=== PATIENT | female | born 1955 | race Caucasian/White ===

== ENCOUNTER 2018-06-05 16:52 | Inpatient (IN) | payer BC, OTHER ==
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
[2018-06-05 18:29] LABS: Basophils % (A) 0 %; Eosinophils # (A) 0.1 k/uL (0-0.7); Eosinophils % (A) 1 %; HCT 43.5 % (34.0-46.0); Lymphocytes # (A) 0.8 k/uL (1.0-4.8); Lymphocytes % (A) 7 %; MCH 29.6 pg (25.0-35.0); MCHC 32.1 g/dL (31.0-37.0); MCV 92.2 fL (80.0-100.0); Mean Platelet Volume 6.9; Monocytes # (A) 0.5 k/uL (0-1.0); Monocytes % (A) 4 %; Neutrophils # (A) 10.8 k/uL (1.3-7.7); Neutrophils % (A) 88 %; Platelet Count 159 k/uL (150-450); RBC 4.72 m/uL (3.80-5.40); RDW 13.5 % (11.5-15.5); WBC 12.2 k/uL (3.8-10.6)
[2018-06-05 18:37] LABS: INR 1.2 (<1.2); Prothrombin Time 11.7 sec (9.0-12.0)
[2018-06-05 18:38] LABS: ALT 33 U/L (9-52); AST 21 U/L (14-36); Albumin 3.8 g/dL (3.5-5.0); Alkaline Phosphatase 85 U/L (38-126); Anion Gap 9 mmol/L; Blood Urea Nitrogen 19 mg/dL (7-17); Calcium 9.1 mg/dL (8.4-10.2); Carbon Dioxide 26 mmol/L (22-30); Chloride 104 mmol/L (98-107); Glucose 144 mg/dL (74-99); Potassium 4.8 mmol/L (3.5-5.1); Sodium 139 mmol/L (137-145); Total Bilirubin 0.6 mg/dL (0.2-1.3); Total Protein 7.4 g/dL (6.3-8.2)
--- NOTE | 2018-06-05 19:17 | XR ---
EXAMINATION TYPE: XR hand complete LT DATE OF EXAM: 06/05/2018 COMPARISON: NONE HISTORY: Hand pain TECHNIQUE: 3 views FINDINGS: There is soft tissue swelling around the hand. Metacarpals are intact. There is narrowing a nd spurring at the first carpometacarpal joint. There are no erosions. IMPRESSION: Soft tissue swelling. Osteoarthritis. No fracture.
--- NOTE | 2018-06-05 19:18 | XR ---
EXAMINATION TYPE: XR wrist complete LT DATE OF EXAM: 06/05/2018 COMPARISON: NONE HISTORY: Pain TECHNIQUE: 4 views FINDINGS: There is narrowing and spurring at the first carpometacarpal joint. I see no fracture. Ther e is vascular calcification. There are cystic changes in the distal scaphoid. IMPRESSION: Degenerative changes consistent with osteoarthritis. No fracture. Soft tissue swelling. No evidence of inflammatory arthritis.
[2018-06-05] MEDS ORDERED: ACETAMINOPHEN TAB 325 MG TAB PO STA (19:52)
[2018-06-05 20:35] LABS: Appearance,Urine Clear (Clear); Bacteria,Urine Rare /hpf; Bilirubin,Urine Negative (Negative); Blood,Urine Moderate (Negative); Color,Urine Yellow; Glucose,Urine (UA) Negative (Negative); Ketones,Urine Negative (Negative); Leukocyte Esterase,Urine Negative (Negative); Mucus,Urine Occasional /hpf; Nitrite,Urine Negative (Negative); Protein,Urine Negative (Negative); RBC,Urine 17 /hpf (0-5); Specific Gravity,Urine 1.019 (1.001-1.035); Urobilinogen,Urine <2.0 mg/dL (<2.0); WBC,Urine 1 /hpf (0-5)
--- NOTE | 2018-06-05 20:36 | XR ---
EXAMINATION TYPE: XR chest 2V DATE OF EXAM: 06/05/2018 COMPARISON: 12/06/2015 HISTORY: Fever TECHNIQUE: Frontal and lateral views of the chest are obtained. FINDINGS: Heart is enlarged. There is no heart failure. Costophrenic angles are clear. There is mild coarsening of interstitial markings. IMPRESSION: No heart failure. There is probably some pulmonary fibrosis. No change. Stable cardiomeg jane.
[2018-06-05] MEDS ORDERED: VANCOMYCIN IV PER PHARMACY 1 EACH MISC MISCELLANE PRN (21:01)
[2018-06-05] MEDS ORDERED: VANCOMYCIN 2,500 MG in SODIUM CHLORIDE 0.9% 500 ML 500 ML IVPB ONE (21:30)
[2018-06-05] MEDS ORDERED: ACETAMINOPHEN TAB 325 MG TAB PO PRN (21:46)
[2018-06-06] MEDS ORDERED: HYDROcodone/APAP 7.5-325MG 1 EACH TAB PO PRN (01:32)
[2018-06-06] MEDS: SODIUM CHLORIDE 0.9% 1,000 ML IV SCH ×2 (01:54→11:02)
[2018-06-06] MEDS: VANCOMYCIN 2,250 MG in SODIUM CHLORIDE 0.9% 500 ML 500 ML IVPB SCH ×2 (05:19→17:22)
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
[2018-06-06] MEDS ORDERED: cefTRIAXone 1,000 MG VIAL IVPB SCH (09:00)
[2018-06-06] MEDS: HYDROcodone/APAP 10-325MG 1 EACH TAB PO PRN ×3 (09:23→21:49)
[2018-06-06] MEDS: METOPROLOL TARTRATE 50 MG TAB PO SCH (09:23)
[2018-06-06] MEDS: PRENATAL VIT-IRON-FOLIC ACID 1 EACH CAP PO SCH (11:02)
[2018-06-06 12:04] LABS: Anion Gap 6 mmol/L; Blood Urea Nitrogen 17 mg/dL (7-17); Calcium 8.3 mg/dL (8.4-10.2); Carbon Dioxide 26 mmol/L (22-30); Chloride 107 mmol/L (98-107); Glucose 113 mg/dL (74-99); Potassium 4.1 mmol/L (3.5-5.1); Sodium 139 mmol/L (137-145)
--- NOTE | 2018-06-06 22:36 | CONS ---
CONSULTATION DATE OF SERVICE: 06/06/2018 REASON FOR CONSULTATION: Left hand cellulitis. HISTORY OF PRESENT ILLNESS: The patient is a 63-year-old female who presented to the [facility] ER with chief complaints of left hand pain. Her symptom of hand pain had been going on for about a day before she presented to hospital. The patient denies significant trauma to it. However, the patient says she may have leaned or bumped it against the side of her hospital bed. The pain is described to be throbbing, almost 7 to 8 out of 10, and worse with touching of her hand with overlying redness. There is currently no skin breakdown or any wounds. The patient did have some chills and she did have a fever of 101.4 when she presented to the hospital. The patient has been diagnosed with left hand cellulitis. She had x-rays of the left hand which show soft tissue swelling, osteoarthritis. No fracture. X-ray of the wrist shows degenerative changes consistent with osteoarthritis. No fracture. Soft tissue swelling. She has been started on Rocephin and vancomycin. Infectious Disease was consulted for further recommendation regarding antibiotic therapy. REVIEW OF SYSTEMS: CONSTITUTIONAL: Positive for weakness along with a fever. EYES: No complaint. ENT: No complaint. RESPIRATORY: No complaint. CARDIOVASCULAR: No complaint. GENITOURINARY: No complaint. GASTROINTESTINAL: No complaint. MUSCULOSKELETAL: As per HPI. INTEGUMENTARY: As per HPI. PSYCHOLOGICAL: No complaint. ENDOCRINE: No complaint. NEUROLOGICAL: No complaint. PAST MEDICAL HISTORY: Significant for: 1. Hypertension. 2. Osteoarthritis. 3. Lymphedema. PAST SURGICAL HISTORY: , hernia repair. SOCIAL HISTORY: Remote history of smoking. No drinking or any drug use. FAMILY HISTORY: No pertinent findings noticed. ALLERGIES: LATEX and NATURAL RUBBER. CURRENT MEDICATIONS: Medications currently include: 1. Vancomycin 250 q.12. 2. Lopressor. 3. Rocephin 1 gram daily. 4. [place]. 5. Tylenol. PHYSICAL EXAMINATION: Blood pressure is 155/73 with a pulse of 72, temperature 97.1. She is 95% on room air. General description is a middle-aged female up in the bed in no distress. No tachypnea or accessory muscle of respiration use. HEENT examination shows no pallor or scleral icterus. Oral mucosa membrane is moist. No pharyngeal erythema or thrush. NECK: Trachea is central. No thyromegaly. LUNGS: Unlabored breathing. Clear to auscultation anteriorly. No wheeze or crackle. HEART: S1, S2. Regular rate and rhythm. ABDOMEN: Soft. No tenderness. No guarding or rigidity. EXTREMITIES: No edema of the feet. EXAMINATION OF LEFT HAND: Dorsum is swollen, red, slightly warm to touch and tender. No fluctuation, induration or any drainage. Neurologically patient is awake, alert, oriented x3. Mood and affect normal. LABS: Hemoglobin is 14, white count 12.2 with a BUN of 17, creatinine 0.62. Urine has been mildly positive. Blood cultures were obtained; currently pending. X-ray report as mentioned above. DIAGNOSTIC IMPRESSION AND PLAN: Patient presented to hospital with left hand pain in a patient who did have a fever of 101 degrees Fahrenheit. The patient did have elevated white count with a diagnosis of left hand cellulitis with diffuse swelling and redness, more likely pointing toward a streptococcal cellulitis patient with no underlying MRSA infection with x- ray showing soft tissue swelling but no bony changes. PLAN: 1. We will discontinue the vancomycin and ceftriaxone. 2. Cefazolin 2 grams IV piggyback q.8 hours. 3. Ke wrap to the left hand area to keep some of the swelling down. 4. We will follow up on clinical condition to further adjust her medication if needed. Thank you for this consultation. We will follow the patient along with you. MMODL / IJN: [id number] /
[2018-06-07] MEDS: ceFAZolin IN SWFI 2 GM/20 ML SYRINGE IVP SCH ×4 (01:00→21:46)
[2018-06-07] MEDS: SODIUM CHLORIDE 0.9% 1,000 ML IV SCH ×2 (01:03→16:21)
[2018-06-07] MEDS: HYDROcodone/APAP 10-325MG 1 EACH TAB PO PRN ×3 (05:29→17:59)
--- NOTE | 2018-06-07 07:18 | P.PN ---
Subjective Progress Note Date: 06/07/18 Principal diagnosis: Left hand cellulitis This is a continue progress note on a 63-year-old white female who is morbidly obese and has an underlying history of immobility who has been admitted for significant left and cellulitis. Erythema is decreased but pain still exists. She is unable to make a fist today. However no fever or chills stated. No sniffing nausea, vomiting or diarrhea stated. Objective - Vital Signs Vital signs: Vital Signs Temp 98.8 F 06/06/18 23:00 Pulse 76 06/06/18 23:00 Resp 17 06/06/18 23:00 BP 144/77 06/06/18 23:00 Pulse Ox 93 L 06/06/18 23:00 Intake & Output 06/06/18 06/07/18 06/07/18 18:59 06:59 18:59 Intake Total 840 Output Total 900 Balance -60 Intake: Intake, IV Titration 600 Amount Sodium Chloride 0.9% 1, 600 000 ml @ 75 mls/hr IV . [id number] [facility] Rx#:[id number] Oral 240 Output: Urine 900 Other: Voiding Method Indwelling Catheter Indwelling Catheter - Constitutional General appearance: Present: morbidly obese, no acute distress - EENT Eyes: Absent: abnormal pupil - Neck Neck: Absent: lymphadenopathy - Respiratory Respiratory: bilateral: CTA - Cardiovascular Rhythm: regular Heart sounds: normal: S1, S2 Abnormal Heart Sounds: Absent: S3 Gallop - Gastrointestinal General gastrointestinal: Present: soft. Absent: tenderness - Integumentary Integumentary Comment(s): Improving cellulitis but significant edema still noted of the left hand. Integumentary: Present: cellulitis - Neurologic Neurologic: Present: CNII-XII intact - Labs CBC & Chem 7: 06/05/18 18:10 06/06/18 11:28 Labs: Abnormal Lab Results - Last 24 Hours (Table) 06/06/18 Range/Units 11:28 Glucose 113 H (74-99) mg/dL Calcium 8.3 L (8.4-10.2) mg/dL Microbiology - Last 24 Hours (Table) 06/05/18 18:10 Blood Culture - Preliminary Blood No Growth after 24 hours Assessment and Plan (1) Cellulitis of left hand Current Visit: Yes Status: Acute Code(s): L03.114 - CELLULITIS OF LEFT UPPER LIMB SNOMED Code(s): 62284419 (2) Fever Current Visit: Yes Status: Acute Code(s): R50.9 - FEVER, UNSPECIFIED SNOMED Code(s): 468023039 Plan: Continue current regimen of treatment. The patient has been discontinued from vancomycin. The patient has not continued on salt with improvement. Continue current treatment. Check CBC in a.m. Anticipate discharge in the next 2-3 days. Time with Patient: Less than 30
[2018-06-07] MEDS: PRENATAL VIT-IRON-FOLIC ACID 1 EACH CAP PO SCH (07:33)
[2018-06-07] MEDS: METOPROLOL TARTRATE 50 MG TAB PO SCH (07:33)
[2018-06-07 10:04] LABS: HCT 38.8 % (34.0-46.0); HGB 12.6 gm/dL (11.4-16.0); MCHC 32.4 g/dL (31.0-37.0); MCV 92.6 fL (80.0-100.0); Mean Platelet Volume 7.4; Platelet Count 142 k/uL (150-450); RBC 4.19 m/uL (3.80-5.40); RDW 13.4 % (11.5-15.5); WBC 8.4 k/uL (3.8-10.6)
[2018-06-07 10:28] LABS: ALT 27 U/L (9-52); AST 17 U/L (14-36); Albumin 2.9 g/dL (3.5-5.0); Alkaline Phosphatase 67 U/L (38-126); Anion Gap 9 mmol/L; Blood Urea Nitrogen 15 mg/dL (7-17); Calcium 8.1 mg/dL (8.4-10.2); Carbon Dioxide 24 mmol/L (22-30); Chloride 107 mmol/L (98-107); Glucose 101 mg/dL (74-99); Sodium 140 mmol/L (137-145); Total Bilirubin 0.4 mg/dL (0.2-1.3); Total Protein 6.1 g/dL (6.3-8.2)
--- NOTE | 2018-06-07 23:04 | PN ---
PROGRESS NOTE DATE OF SERVICE: 06/07/2018 REASON FOR FOLLOWUP: Left hand cellulitis. INTERVAL HISTORY: The patient is currently afebrile. She is breathing comfortably. Pain to the left hand is slightly decreased in intensity. Still has some pain on movement of the joint. Denies having any chest pain, shortness of breath or cough. No abdominal pain or any diarrhea. PHYSICAL EXAMINATION: Blood pressure is 113/73 with a pulse of 87, temperature 98.4. She is 91% on room air. General description is a middle-aged female lying in bed in no distress. RESPIRATORY SYSTEM: Unlabored breathing. Clear to auscultation anteriorly. HEART: S1, S2. Regular rate and rhythm. ABDOMEN: Soft. No tenderness. Left hand swelling and redness decreased, slightly warm to touch. LABS: Hemoglobin is 12.6, white count of 8.4 with a BUN of 15, creatinine 0.74. DIAGNOSTIC IMPRESSION AND PLAN: Patient with left hand cellulitis with diffuse swelling and redness, likely streptococcal disease. Clinical suspicion low for a staphylococcal infection. Slight improvement on the cefazolin. That will be continued and ice packs to keep the swelling down. Will check a CBC and uric acid level tomorrow. Continue with supportive care. MMODL / IJN: [id number] /
[2018-06-08] MEDS: HYDROcodone/APAP 10-325MG 1 EACH TAB PO PRN ×3 (02:58→16:27)
[2018-06-08] MEDS: SODIUM CHLORIDE 0.9% 1,000 ML IV SCH ×2 (04:01→16:28)
[2018-06-08] MEDS: ceFAZolin IN SWFI 2 GM/20 ML SYRINGE IVP SCH ×2 (06:13→14:42)
[2018-06-08] MEDS: METOPROLOL TARTRATE 50 MG TAB PO SCH (07:45)
[2018-06-08] MEDS: PRENATAL VIT-IRON-FOLIC ACID 1 EACH CAP PO SCH (07:46)
--- NOTE | 2018-06-08 08:01 | P.PN ---
Subjective Principal diagnosis: Left hand cellulitis This is a continue progress note on a 63-year-old white female who is morbidly obese and has an underlying history of immobility who has been admitted for significant left and cellulitis. Erythema is decreased but pain still exists. She is unable to make a fist today. However no fever or chills stated. No sniffing nausea, vomiting or diarrhea stated. Clinically the patient is improving but still has difficulty making a fist. Objective - Vital Signs Vital signs: Vital Signs Temp 99.5 F 06/07/18 23:00 Pulse 77 06/07/18 23:00 Resp 16 06/07/18 23:00 BP 134/82 06/07/18 23:00 Pulse Ox 95 06/07/18 23:00 Intake & Output 06/07/18 06/08/18 06/08/18 18:59 06:59 18:59 Intake Total 1260 480 Output Total 675 1000 Balance 585 -520 Intake: Intake, IV Titration 900 Amount Sodium Chloride 0.9% 1, 900 000 ml @ 75 mls/hr IV . [id number] [facility] Rx#:[id number] Oral 360 480 Output: Urine 675 1000 Other: Voiding Method Indwelling Catheter Indwelling Catheter - Constitutional General appearance: Present: morbidly obese - EENT Eyes: Absent: abnormal pupil - Neck Neck: Absent: lymphadenopathy - Respiratory Respiratory: bilateral: CTA - Cardiovascular Heart sounds: normal: S1, S2 - Gastrointestinal General gastrointestinal: Present: soft. Absent: tenderness - Psychiatric Psychiatric: Present: A&O x's 3 - Labs CBC & Chem 7: 06/07/18 08:24 06/07/18 08:24 Labs: Abnormal Lab Results - Last 24 Hours (Table) 06/07/18 06/07/18 Range/Units 08:24 08:24 Plt Count 142 L (150-450) k/uL Glucose 101 H (74-99) mg/dL Calcium 8.1 L (8.4-10.2) mg/dL Total Protein 6.1 L (6.3-8.2) g/dL Albumin 2.9 L (3.5-5.0) g/dL Microbiology - Last 24 Hours (Table) 06/05/18 18:10 Blood Culture - Preliminary Blood No Growth after 48 hours Assessment and Plan (1) Cellulitis of left hand Current Visit: Yes Status: Acute Code(s): L03.114 - CELLULITIS OF LEFT UPPER LIMB SNOMED Code(s): 58042366 (2) Fever Current Visit: Yes Status: Acute Code(s): R50.9 - FEVER, UNSPECIFIED SNOMED Code(s): 569868752 Plan: Improvement clinically with Kefzol. Check CBC in a.m. I would anticipate discharge in next 24-48 hours. See orders otherwise.
[2018-06-08 10:05] LABS: Basophils % (A) 0 %; Eosinophils # (A) 0.2 k/uL (0-0.7); Eosinophils % (A) 2 %; HCT 39.6 % (34.0-46.0); HGB 12.4 gm/dL (11.4-16.0); Lymphocytes # (A) 1.1 k/uL (1.0-4.8); Lymphocytes % (A) 11 %; MCH 29.2 pg (25.0-35.0); MCHC 31.4 g/dL (31.0-37.0); MCV 92.7 fL (80.0-100.0); Mean Platelet Volume 6.7; Monocytes # (A) 0.5 k/uL (0-1.0); Monocytes % (A) 5 %; Neutrophils # (A) 8.3 k/uL (1.3-7.7); Neutrophils % (A) 81 %; Platelet Count 162 k/uL (150-450); RBC 4.27 m/uL (3.80-5.40); RDW 13.4 % (11.5-15.5); WBC 10.2 k/uL (3.8-10.6)
[2018-06-08 10:45] LABS: Anion Gap 8 mmol/L; Blood Urea Nitrogen 14 mg/dL (7-17); Carbon Dioxide 23 mmol/L (22-30); Chloride 107 mmol/L (98-107); Glucose 126 mg/dL (74-99); Sodium 138 mmol/L (137-145); Uric Acid 5.4 mg/dL (3.7-7.4)
--- NOTE | 2018-06-08 22:11 | PN ---
PROGRESS NOTE DATE OF SERVICE: 06/08/2018 REASON FOR FOLLOWUP: Left hand cellulitis. INTERVAL HISTORY: The patient is currently afebrile. She is breathing comfortably. The left hand dorsum swelling has slightly decreased. She seems to have developed some infiltration on the right upper arm at the side of the IV, which has been discontinued. Denies having any chest pain, shortness of breath or cough. No abdominal pain or any diarrhea. PHYSICAL EXAMINATION: Blood pressure 168/86, pulse of 67, temperature 98.7. She is 95% on room air. General description is a middle-aged female up in the bed in no distress. RESPIRATORY SYSTEM: Unlabored breathing. Clear to auscultation anteriorly. HEART: S1, S2. Regular rate and rhythm. ABDOMEN: Soft. No tenderness. Left hand dorsum swelling is slightly decreased. No skin breakdown. No drainage. LABS: Hemoglobin 12.4, white count 10.2. Uric acid 5.4. Blood culture has been negative. DIAGNOSTIC IMPRESSION AND PLAN: Patient with left hand cellulitis with no evidence of any bony changes on the x-ray or any evidence of any abscess. We will continue the patient on cefazolin 2 grams q.8 hours, cold compresses to the arm along with Ke wrap and reevaluate the hand tomorrow. If the patient continues to improve, hopefully finish therapy with oral antibiotics. Continue with supportive care. MMODL / IJN: [id number] /
[2018-06-09] MEDS: ceFAZolin IN SWFI 2 GM/20 ML SYRINGE IVP SCH ×4 (00:53→22:35)
[2018-06-09] MEDS: SODIUM CHLORIDE 0.9% 1,000 ML IV SCH ×3 (05:59→22:35)
[2018-06-09] MEDS: HYDROcodone/APAP 10-325MG 1 EACH TAB PO PRN ×3 (07:45→21:50)
[2018-06-09] MEDS: PRENATAL VIT-IRON-FOLIC ACID 1 EACH CAP PO SCH (07:46)
[2018-06-09] MEDS: METOPROLOL TARTRATE 50 MG TAB PO SCH (07:46)
--- NOTE | 2018-06-09 08:07 | P.PN ---
Subjective Principal diagnosis: Left hand cellulitis This is a continue progress note on a 63-year-old white female who is morbidly obese and has an underlying history of immobility who has been admitted for significant left and cellulitis. Erythema is decreased but pain still exists. She is unable to make a fist today. However no fever or chills stated. No sniffing nausea, vomiting or diarrhea stated. Clinically the patient is improving but still has difficulty making a fist. Objective - Vital Signs Vital signs: Vital Signs Temp 99.5 F 06/09/18 00:46 Pulse 66 06/09/18 07:30 Resp 16 06/09/18 00:46 BP 137/80 06/09/18 07:30 Pulse Ox 94 L 06/09/18 07:30 Intake & Output 06/08/18 06/09/18 06/09/18 18:59 06:59 18:59 Intake Total 600 Output Total 800 1475 Balance -200 -1475 Intake: Intake, IV Titration 600 Amount Sodium Chloride 0.9% 1, 600 000 ml @ 75 mls/hr IV . [id number] [facility] Rx#:[id number] Output: Urine 800 1475 Other: Voiding Method Indwelling Catheter Indwelling Catheter Indwelling Catheter - Constitutional General appearance: Present: morbidly obese - EENT Eyes: Absent: abnormal pupil - Respiratory Respiratory: bilateral: CTA - Cardiovascular Rhythm: regular Heart sounds: normal: S1, S2 Abnormal Heart Sounds: Absent: S3 Gallop - Gastrointestinal General gastrointestinal: Present: soft. Absent: tenderness - Neurologic Neurologic: Present: CNII-XII intact. Absent: focal deficits - Psychiatric Psychiatric: Present: A&O x's 3 - Labs CBC & Chem 7: 06/08/18 09:35 06/08/18 09:35 Labs: Abnormal Lab Results - Last 24 Hours (Table) 06/08/18 06/08/18 Range/Units 09:35 09:35 Neutrophils # 8.3 H (1.3-7.7) k/uL Glucose 126 H (74-99) mg/dL Calcium 8.0 L (8.4-10.2) mg/dL Microbiology - Last 24 Hours (Table) 06/05/18 18:10 Blood Culture - Preliminary Blood No Growth after 72 hours Assessment and Plan (1) Cellulitis of left hand Current Visit: Yes Status: Acute Code(s): L03.114 - CELLULITIS OF LEFT UPPER LIMB SNOMED Code(s): 44411177 (2) Fever Current Visit: Yes Status: Acute Code(s): R50.9 - FEVER, UNSPECIFIED SNOMED Code(s): 908255264 Plan: We will go ahead and continue current regimen of salt. Anticipate discharge in a.m. Check CBC in a.m. Time with Patient: Less than 30
[2018-06-09 08:49] LABS: HGB 12.3 gm/dL (11.4-16.0); MCH 30.7 pg (25.0-35.0); MCHC 33.3 g/dL (31.0-37.0); MCV 92.3 fL (80.0-100.0); Mean Platelet Volume 7.6; Platelet Count 169 k/uL (150-450); RBC 4.01 m/uL (3.80-5.40); RDW 13.3 % (11.5-15.5); WBC 7.4 k/uL (3.8-10.6)
[2018-06-09 09:03] LABS: Anion Gap 5 mmol/L; Blood Urea Nitrogen 16 mg/dL (7-17); Calcium 8.1 mg/dL (8.4-10.2); Carbon Dioxide 26 mmol/L (22-30); Chloride 107 mmol/L (98-107); Glucose 100 mg/dL (74-99); Sodium 138 mmol/L (137-145)
[2018-06-09 09:35] LABS: Potassium 4.2 mmol/L (3.5-5.1)
--- NOTE | 2018-06-09 22:30 | PN ---
PROGRESS NOTE DATE OF SERVICE: 06/09/2018. REASON FOR FOLLOWUP: Left hand cellulitis. INTERVAL HISTORY: The patient is currently afebrile. She is breathing comfortably. The left hand swelling and redness has decreased. Denies having any chest pain, shortness of breath, cough. No abdominal pain. No diarrhea. EXAMINATION: Blood pressure 156/84 with a pulse of 84, temperature 98. She is 96% on room air. General description is a middle aged female lying in bed in no distress. Respiratory system: Unlabored breathing. Clear to auscultation anteriorly. Heart S1, S2. Regular rate and rhythm. Abdomen is soft, no tenderness. Left hand swelling and decreased redness and decreased as well. No skin breakdown. LABS: Hemoglobin 12.2, white count 7.4, BUN of 16, creatinine 0.53. DIAGNOSTIC IMPRESSION AND PLAN: Patient with left hand cellulitis, possible streptococcal disease. Patient's has shown clinical improvement to the cefazolin with the plan to finish therapy with oral Keflex 500 mg q.6 hours for 10 days with close outpatient followup. Continue with Ke wrap to keep the swelling down. Continue supportive care. MMODL / IJN: [id number] /
[2018-06-10] MEDS: ceFAZolin IN SWFI 2 GM/20 ML SYRINGE IVP SCH (05:52)
--- NOTE | 2018-06-10 07:11 | P.DS ---
Providers Date of admission: 06/06/18 00:07 Attending physician: Javier Dunne Consults: 06/06/18 07:44 Consult Physician Routine Consulting Provider: Yaa Brannon Consult Reason/Comments: cellulitis of left hand Do you want consulting provider notified?: Already Contacted Primary care physician: Javier Dunne - Discharge Diagnosis(es) (1) Cellulitis of left hand Current Visit: Yes Status: Acute (2) Fever Current Visit: Yes Status: Acute Hospital Course: This discharge summary 63-year-old white female centimeter for left hand cellulitis. We Kept her on IV therapy for about 4 days and she acquiesced and although, she has a left swollen and she is stable for discharge from infectious disease standpoint. However, she struggles with being bedridden and wheelchair bound. We'll discharged in stable condition to follow-up with me in about 7-10 days. Patient Condition at Discharge: Good Plan - Discharge Summary Discharge Rx Participant: Yes New Discharge Prescriptions: New Amoxicillin/Potassium Clav [Augmentin 875-125 Tablet] 1 tab PO Q12HR #14 tab Continue Metoprolol Tartrate [Lopressor] 50 mg PO DAILY [id number] Acid [-U Capsule (formulary)] 1 cap PO DAILY Hydrocodone/Acetaminophen [[place] 7.5-325] 1 tab PO DAILY PRN PRN Reason: Pain Discharge Medication List Metoprolol Tartrate [Lopressor] 50 mg PO DAILY 01/29/15 [History] Hydrocodone/Acetaminophen [[place] 7.5-325] 1 tab PO DAILY PRN 06/05/18 [History] [id number] Acid [-U Capsule (formulary)] 1 cap PO DAILY [History] Amoxicillin/Potassium Clav [Augmentin 875-125 Tablet] 1 tab PO Q12HR #14 tab [Rx] Follow up Appointment(s)/Referral(s): Javier Dunne MD [Primary Care Provider] - 1-2 days
[2018-06-10] MEDS: HYDROcodone/APAP 10-325MG 1 EACH TAB PO PRN (07:37)
[2018-06-10] MEDS: METOPROLOL TARTRATE 50 MG TAB PO SCH (07:38)
[2018-06-10] MEDS: PRENATAL VIT-IRON-FOLIC ACID 1 EACH CAP PO SCH (07:38)
[2018-06-10 07:41] VITALS: BP 154/87; PULSE 70; RESP 18; TEMP 98.6
[2018-06-10 08:15] LABS: HCT 37.9 % (34.0-46.0); HGB 12.5 gm/dL (11.4-16.0); MCH 30.2 pg (25.0-35.0); MCHC 32.8 g/dL (31.0-37.0); Mean Platelet Volume 7.1; Platelet Count 168 k/uL (150-450); RBC 4.12 m/uL (3.80-5.40); RDW 13.3 % (11.5-15.5); WBC 7.7 k/uL (3.8-10.6)
[2018-06-10 09:55] LABS: Anion Gap 6 mmol/L; Blood Urea Nitrogen 16 mg/dL (7-17); Calcium 8.1 mg/dL (8.4-10.2); Carbon Dioxide 26 mmol/L (22-30); Chloride 107 mmol/L (98-107); Glucose 129 mg/dL (74-99); Potassium 3.8 mmol/L (3.5-5.1); Sodium 139 mmol/L (137-145)
--- NOTE | 2018-06-10 17:25 | PN ---
PROGRESS NOTE DATE OF SERVICE: 06/10/2018. REASON FOR FOLLOWUP: Left hand cellulitis. INTERVAL HISTORY: The patient is currently afebrile. She is feeling better. Breathing comfortably. Left hand swelling and redness has improved. The patient denies any chest pain, shortness of breath, cough, no abdominal pain or diarrhea. EXAMINATION: Blood pressure 154/87, pulse of 70, temperature 98.6. She is 95% on room air. General description is a middle age female lying in bed in no distress. Respiratory system unlabored breathing. Clear to auscultation anteriorly. Heart S1, S2. Regular rate and rhythm. Abdomen soft. Left hand swelling and redness improved. No skin breakdown. No drainage. LABS: White count 7.7 with a BUN of 15, creatinine 0.59. DIAGNOSTIC IMPRESSION AND PLAN: Patient with left hand cellulitis. The patient is to have shown clinical improvement with cefazolin. Plan to finish therapy with oral Keflex 500 mg t.i.d. for about a week with close outpatient followup. Question were answered. . MMODL / IJN: [id number] /
== END 2018-06-10 16:15 | disposition home or self-care (01) | DRG 603 ==
LOC: EC 16:52 → 4SSUR 21:45 → UNDOADMOB 21:45 → OBSVTOIN 06-06 00:07 → 4SSUR 06-06 00:07 → UNDOADMOB 06-06 00:16 → 4SSUR 06-06 00:16
PROVIDERS: ADMIT Family Medicine; ATTEND Family Medicine
DX: L03.114 Cellulitis of left upper limb (principal); Z68.43 Body mass index [BMI] 50.0-59.9, adult; E66.01 Morbid (severe) obesity due to excess calories; I10 Essential (primary) hypertension; G89.29 Other chronic pain; I89.0 Lymphedema, not elsewhere classified; M19.042 Primary osteoarthritis, left hand; M19.032 Primary osteoarthritis, left wrist; B95.5 Unspecified streptococcus as the cause of diseases classified elsewhere; Z74.01 Bed confinement status; Z99.3 Dependence on wheelchair; Z79.899 Other long term (current) drug therapy; Z91.040 Latex allergy status; Z87.891 Personal history of nicotine dependence; Z86.14 Personal history of Methicillin resistant Staphylococcus aureus infection; Z82.49 Family history of ischemic heart disease and other diseases of the circulatory system
CPT/HCPCS: 36415; 51702; 71046; 80048; 80053; 81001; 83605; 84550; 85025; 85027; 85610; 85730; 87040; 96365; 96366; 96367; 99284

== ENCOUNTER 2024-05-24 02:09 | Observation (INO) | payer MEDICARE, BC ==
--- NOTE | 2024-05-24 03:04 | ED ---
General Adult HPI - General Chief complaint: Dizziness Stated complaint: Fall Time Seen by Provider: 05/24/24 02:49 Source: patient, EMS Mode of arrival: EMS Limitations: no limitations - History of Present Illness Initial comments: Patient is a 69-year-old female past medical history morbid obesity presenting today for dizziness. Patient was sitting on her commode where she just had a bowel movement and began to feel dizzy. This caused her to fall forward, she attempted to fall into her bed which is right next her, however missed her bed and fell forward onto her hands and knees. States she was on the floor for about 30 minutes prior to her daughter finding her and calling EMS. Patient states her dizziness has since resolved and has difficulty describing it, denying lightheadedness or spinning floor tilting significant. She denies any chest pain or shortness of breath. Did state that she did had 1 episode of nonbloody nonbilious emesis after falling. Denies any abdominal pain. Did states she felt sick yesterday as well stating she had about 3 episodes of nonbloody nonbilious emesis. No diarrhea black or bloody stools. No fevers or chills. No cough. Does endorse right knee pain. - Related Data Home Medications Medication Instructions Recorded Confirmed Furosemide [Lasix] 20 mg PO Q7D 05/24/24 05/24/24 HYDROcodone/APAP 10-325MG [[place] 0.5 tab PO Q8H PRN 05/24/24 05/24/24 10-325] Metoprolol Tartrate [Lopressor] 50 mg PO DAILY 05/24/24 05/24/24 Pnv,Calcium 72/Iron/Folic Acid 1 tab PO DAILY 05/24/24 05/24/24 [[place] Plus Tablet] Previous Rx's Medication Instructions Recorded Cephalexin [Keflex] 500 mg PO Q6HR 7 Days #28 cap 05/26/24 Mag Hydrox/Al Hydrox/Simeth 15 ml PO Q6HR PRN ml 05/26/24 [Maalox] Nystatin 100,000 Unit/gm Powd 1 applic TOPICAL TID each 05/26/24 [Mycostatin Powder] bisacodyL [Dulcolax] 5 mg PO DAILY PRN tab 05/26/24 Gentamicin 0.3% Ophth Soln 1 drops BOTH EYES Q4HR #5 ml 05/29/24 [Garamycin 0.3% Ophth Soln] amLODIPine [Norvasc] 10 mg PO DAILY 30 Days #30 tab 05/29/24 Allergies Allergy/AdvReac Type Severity Reaction Status Date / Time Latex, Natural Rubber Allergy Unknown Verified 05/24/24 07:28 Review of Systems ROS Statement: Those systems with pertinent positive or pertinent negative responses have been documented in the HPI. ROS Other: All systems not noted in ROS Statement are negative. Past Medical History Past Medical History: Hypertension, Osteoarthritis (OA) Additional Past Medical History / Comment(s): lymphedema History of Any Multi-Drug Resistant Organisms: MRSA Date of last positivie culture/infection: 2015 MDRO Source:: Right Arm Past Surgical History: Section, Hernia Repair Additional Past Anesthesia/Blood Transfusion Reaction / Comment(s): Bradycardia with anesthetic Past Psychological History: No Psychological Hx Reported Past Alcohol Use History: None Reported Past Drug Use History: None Reported - Past Family History Father Additional Family Medical History / Comment(s): HEart Disease , HTN Mother Family Medical History: Hypertension General Exam - General Exam Comments Initial Comments: PE: Exam is noted by patient's body habitus CONSTITUTIONAL: No apparent distress, well appearing SKIN: Warm, dry, no jaundice, hives or petechiae; Patient has a large erythematous wound on lateral right lower extremity with surrounding erythema, firm, nontender, no crepitus, macerated with yellow exudate along one wound edge EYES: Pupils are equally round, extraocular movements intact without nystagmus, clear conjunctiva, non-icteric sclera HENT: Normocephalic, atraumatic, moist mucus membranes, oropharynx clear without exudates NECK: , Full range of motion, normal appearance PULMONARY: Clear to auscultation without wheezes, rhonchi, or rales, normal excursion, no accessory muscle use and no stridor CARDIOVASCULAR: Regular rate, rhythm, normal S1 and S2. No appreciated murmurs, rubs or gallops. Strong radial pulses with intact distal perfusion. No lower extremity edema GASTROINTESTINAL: Soft, active bowel sounds throughout, non-tender, non- distended, no palpable masses, no rebound or guarding. No hepatosplenomegaly GENITOURINARY: MUSCULOSKELETAL: Tenderness to palpation over the right knee, proximal left femu r, proximal tib-fib, no deformity, patient is able to flex her right lower extremity at the hip able to flex her right knee and plantar and dorsiflex the right ankle although this is again limited by patient's body habitus; otherwise extremities have no gross deformity, no edema, redness, or swelling. NEUROLOGIC:_a/o x 3, GCS 15, normal mentation and speech. Moves all extremities x 4 without motor or sensory deficit PSYCHIATRIC:_normal mood and affect, thought process is clear and linear Limitations: no limitations Course Vital Signs 05/24/24 05/24/24 05/24/24 02:12 04:42 05:05 Temperature 97.4 F L Pulse Rate 62 64 68 Respiratory 18 18 18 Rate Blood Pressure 158/128 181/72 179/74 O2 Sat by Pulse 98 98 97 Oximetry 05/24/24 05/24/24 05/24/24 06:00 07:27 08:58 Temperature 98.2 F Pulse Rate 67 66 76 Respiratory 16 20 19 Rate Blood Pressure 157/80 176/84 162/75 O2 Sat by Pulse 96 98 Oximetry 05/24/24 05/24/24 05/24/24 12:44 15:50 17:00 Temperature Pulse Rate 64 68 69 Respiratory 18 20 20 Rate Blood Pressure 163/85 148/71 137/69 O2 Sat by Pulse 95 94 L 96 Oximetry EKG Findings - EKG Comments: EKG Findings:: Sinus rhythm, rate 65 bpm, NC interval 163 ms, QRS duration 102 ms, QT/QTc 429/441 ms, left axis deviation, artifact present throughout, no ST elevation or depression, no arrhythmia Medical Decision Making - Medical Decision Making Was pt. sent in by a medical professional or institution (, PA, BUTTON TUFTING MACHINE OPERATOR, urgent care, hospital, or [facility]...) When possible be specific @ -No Did you speak to anyone other than the patient for history (EMS, parent, family, police, friend...)? What history was obtained from this source @ -No Did you review nursing and triage notes (agree or disagree)? Why? @ -I reviewed and agree with nursing and triage notes Were old charts reviewed (outside hosp., previous admission, EMS record, old EKG, old radiological studies, urgent care reports/EKG's, [facility] records)? Report findings @Reviewed old charts, no recent visits since 2018 Differential Diagnosis (chest pain, altered mental status, abdominal pain women, abdominal pain men, vaginal bleeding, weakness, fever, dyspnea, syncope, headache, dizziness, GI bleed, back pain, seizure, CVA, palpatations, mental health, musculoskeletal)? @ -Differential Dizziness: Benign paroxysmal positional Vertigo, Meniere's disease, orthostatic hypotension, vertebrobasilar insufficiency, cerebellar stroke, hypovolemic, arrhythmia, coronary artery syndrome, anemia, this is not meant to be an all- inclusive list EKG interpreted by me (3pts min.). @ -As above X-rays interpreted by me (1pt min.). @ -Reviewed plain films, I see no evidence of fracture or dislocation CT interpreted by me (1pt min.). @ -None done U/S interpreted by me (1pt. min.). @ -None done What testing was considered but not performed or refused? (CT, X-rays, U/S, labs)? Why? @ -Did consider CT brain however patient did not suffer head trauma, additionally dizziness was brief in onset, it had resolved prior to arrival, patient has no focal neurologic deficits therefore did not feel imaging of the brain indicated at this time What meds were considered but not given or refused? Why? @ -None Did you discuss the management of the patient with other professionals (professionals i.e. , PA, BUTTON TUFTING MACHINE OPERATOR, lab, RT, psych nurse, social services counselor, software support engineer, teacher, chief financial officer, porter sample case)? Give summary @ -No Was smoking cessation discussed for >3mins.? @ -No Was critical care preformed (if so, how long)? @ -No Were there social determinants of health that impacted care today? How? (Homelessness, low income, unemployed, alcoholism, drug addiction, transportation, low edu. Level, literacy, decrease access to med. care, skilled nursing, rehab)? @ -Patient bedbound and unable to get to outpatient medical appointments Was there de-escalation of care discussed even if they declined (Discuss DNR or withdrawal of care, Hospice)? @ -No What co-morbidities impacted this encounter? (DM, HTN, Smoking, COPD, CAD, Cancer, CVA, ARF, Chemo, Hep., AIDS, mental health diagnosis, sleep apnea, morbid obesity)? @ -Morbid obesity Was patient admitted / discharged? Hospital course, mention meds given and route, prescriptions, significant lab abnormalities, going to OR and other pertinent info. @ -Hospital course admission. Patient is a 69-year-old female presenting today for episode of dizziness causing her to fall forward from her commode and landed on her hands and knees. Patient seen and assessed on arrival. Physical exam performed. Significant for tenderness to palpation overlying the right knee, proximal tib-fib, proximal right femur region to deep palpation without gross deformity or joint swelling however of note patient's exam is significantly limited by her body habitus. Patient also noted a chronic right lower extremity wound, patient was rolled onto her left side and allowed us to visualize a large erythematous wound with maceration throughout, exudate from 1 portion of the wound, firm nonfluctuant no crepitus. Patient states that this is not painful. Plan for comprehensive labs, IV antibiotics. Patient is bedbound and has not been able to see her primary care doctor due to this. She has been offered home care physicians however patient has extreme anxiety around doctors so has not wanted to see these doctors. Given the extent of patient's wound I do think she needs a wound care consult, IV antibiotics and admission to ensure proper care of wound. Patient agreeable with plan. Additionally, EKG, plain films affeced extremity, comprehensive labs ordered to evaluate for potential causes of patient's weakness today. Suspect 2/2 volume depletion as patient does have dry MM, has been vomiting. Creatinine 1.25, consistent with RAJENDRA. Otherwise labs reassuring. Reviewed x- rays I see no evidence of acute fracture or dislocation. Plan for admission for wound care consult given the extent of patient's right lower extremity wound. Discussed case with Dr. Dunne who kindly excepted patient for admission. Patient admitted in stable condition Undiagnosed new problem with uncertain prognosis? @ -No Drug Therapy requiring intensive monitoring for toxicity (Heparin, Nitro, Insulin, Cardizem)? @ -No Were any procedures done? @ -No Diagnosis/symptom? @ -Dizziness, right lower extremity wound Acute, or Chronic, or Acute on Chronic? @ -Acute, acute on chronic Uncomplicated (without systemic symptoms) or Complicated (systemic symptoms)? @ -Complicated Side effects of treatment? @ -No Exacerbation, Progression, or Severe Exacerbation? @ -No Poses a threat to life or bodily function? How? (Chest pain, USA, VT, pneumonia, PE, COPD, DKA, ARF, appy, cholecystitis, CVA, Diverticulitis, Homicidal, Suicidal, threat to staff... and all critical care pts) @ Unlikely - Lab Data Result diagrams: 05/29/24 09:07 05/28/24 04:24 Lab Results 05/24/24 05/24/24 05/24/24 Range/Units 02:50 02:50 02:50 WBC 10.6 (3.8-10.6) k/uL RBC 4.51 (3.80-5.40) m/uL Hgb 12.0 (11.4-16.0) gm/dL Hct 38.2 (34.0-46.0) % MCV 84.7 (80.0-100.0) fL MCH 26.5 (25.0-35.0) pg MCHC 31.3 (31.0-37.0) g/dL RDW 15.5 (11.5-15.5) % Plt Count 188 (150-450) k/uL MPV 7.8 Neutrophils % 79 % Lymphocytes % 14 % Monocytes % 5 % Eosinophils % 2 % Basophils % 0 % Neutrophils # 8.4 H (1.3-7.7) k/uL Lymphocytes # 1.5 (1.0-4.8) k/uL Monocytes # 0.5 (0-1.0) k/uL Eosinophils # 0.2 (0-0.7) k/uL Basophils # 0.0 (0-0.2) k/uL Hypochromasia Slight PT 10.8 (10.0-12.5) sec INR 1.0 (<1.2) Sodium 141 (137-145) mmol/L Potassium 4.1 (3.5-5.1) mmol/L Chloride 107 (98-107) mmol/L Carbon Dioxide 27 (22-30) mmol/L Anion Gap 7 mmol/L BUN 28 H (7-17) mg/dL Creatinine 1.21 H (0.52-1.04) mg/dL Est GFR (CKD-EPI)AfAm 53 (>60 ml/min/1.73 sqM) Est GFR (CKD-EPI)NonAf 46 (>60 ml/min/1.73 sqM) Glucose 120 H (74-99) mg/dL Calcium 8.9 (8.4-10.2) mg/dL Total Bilirubin 0.4 (0.2-1.3) mg/dL AST 21 (14-36) U/L ALT 11 (4-34) U/L Alkaline Phosphatase 88 (38-126) U/L Troponin I (0.000-0.034) ng/mL C-Reactive Protein (<1.0) mg/dL Total Protein 6.5 (6.3-8.2) g/dL Albumin 3.4 L (3.5-5.0) g/dL Amylase 36 (30-110) U/L Lipase 108 (23-300) U/L Procalcitonin (0.02-0.50) ng/mL Influenza Type A (PCR) (Not Detectd) Influenza Type B (PCR) (Not Detectd) RSV (PCR) (Not Detectd) SARS-CoV-2 (PCR) (Not Detectd) 05/24/24 05/24/24 05/24/24 Range/Units 02:50 02:50 04:20 WBC (3.8-10.6) k/uL RBC (3.80-5.40) m/uL Hgb (11.4-16.0) gm/dL Hct (34.0-46.0) % MCV (80.0-100.0) fL MCH (25.0-35.0) pg MCHC (31.0-37.0) g/dL RDW (11.5-15.5) % Plt Count (150-450) k/uL MPV Neutrophils % % Lymphocytes % % Monocytes % % Eosinophils % % Basophils % % Neutrophils # (1.3-7.7) k/uL Lymphocytes # (1.0-4.8) k/uL Monocytes # (0-1.0) k/uL Eosinophils # (0-0.7) k/uL Basophils # (0-0.2) k/uL Hypochromasia PT (10.0-12.5) sec INR (<1.2) Sodium (137-145) mmol/L Potassium (3.5-5.1) mmol/L Chloride (98-107) mmol/L Carbon Dioxide (22-30) mmol/L Anion Gap mmol/L BUN (7-17) mg/dL Creatinine (0.52-1.04) mg/dL Est GFR (CKD-EPI)AfAm (>60 ml/min/1.73 sqM) Est GFR (CKD-EPI)NonAf (>60 ml/min/1.73 sqM) Glucose (74-99) mg/dL Calcium (8.4-10.2) mg/dL Total Bilirubin (0.2-1.3) mg/dL AST (14-36) U/L ALT (4-34) U/L Alkaline Phosphatase (38-126) U/L Troponin I 0.023 (0.000-0.034) ng/mL C-Reactive Protein 2.7 H (<1.0) mg/dL Total Protein (6.3-8.2) g/dL Albumin (3.5-5.0) g/dL Amylase (30-110) U/L Lipase (23-300) U/L Procalcitonin (0.02-0.50) ng/mL Influenza Type A (PCR) Not Detected (Not Detectd) Influenza Type B (PCR) Not Detected (Not Detectd) RSV (PCR) Not Detected (Not Detectd) SARS-CoV-2 (PCR) Not Detected (Not Detectd) 05/24/24 Range/Units 05:01 WBC (3.8-10.6) k/uL RBC (3.80-5.40) m/uL Hgb (11.4-16.0) gm/dL Hct (34.0-46.0) % MCV (80.0-100.0) fL MCH (25.0-35.0) pg MCHC (31.0-37.0) g/dL RDW (11.5-15.5) % Plt Count (150-450) k/uL MPV Neutrophils % % Lymphocytes % % Monocytes % % Eosinophils % % Basophils % % Neutrophils # (1.3-7.7) k/uL Lymphocytes # (1.0-4.8) k/uL Monocytes # (0-1.0) k/uL Eosinophils # (0-0.7) k/uL Basophils # (0-0.2) k/uL Hypochromasia PT (10.0-12.5) sec INR (<1.2) Sodium (137-145) mmol/L Potassium (3.5-5.1) mmol/L Chloride (98-107) mmol/L Carbon Dioxide (22-30) mmol/L Anion Gap mmol/L BUN (7-17) mg/dL Creatinine (0.52-1.04) mg/dL Est GFR (CKD-EPI)AfAm (>60 ml/min/1.73 sqM) Est GFR (CKD-EPI)NonAf (>60 ml/min/1.73 sqM) Glucose (74-99) mg/dL Calcium (8.4-10.2) mg/dL Total Bilirubin (0.2-1.3) mg/dL AST (14-36) U/L ALT (4-34) U/L Alkaline Phosphatase (38-126) U/L Troponin I (0.000-0.034) ng/mL C-Reactive Protein (<1.0) mg/dL Total Protein (6.3-8.2) g/dL Albumin (3.5-5.0) g/dL Amylase (30-110) U/L Lipase (23-300) U/L Procalcitonin 0.08 (0.02-0.50) ng/mL Influenza Type A (PCR) (Not Detectd) Influenza Type B (PCR) (Not Detectd) RSV (PCR) (Not Detectd) SARS-CoV-2 (PCR) (Not Detectd) Disposition Clinical Impression: Dizziness, Fall, Wound of lower extremity, RAJENDRA (acute kidney injury) Disposition: ADMITTED IP TO THIS HOSP Condition: Stable
[2024-05-24 03:21] LABS: Basophils % (A) 0 %; Eosinophils # (A) 0.2 k/uL (0-0.7); Eosinophils % (A) 2 %; HCT 38.2 % (34.0-46.0); Hypochromasia Slight; Lymphocytes # (A) 1.5 k/uL (1.0-4.8); Lymphocytes % (A) 14 %; MCH 26.5 pg (25.0-35.0); MCHC 31.3 g/dL (31.0-37.0); MCV 84.7 fL (80.0-100.0); Mean Platelet Volume 7.8; Monocytes # (A) 0.5 k/uL (0-1.0); Monocytes % (A) 5 %; Neutrophils # (A) 8.4 k/uL (1.3-7.7); Neutrophils % (A) 79 %; Platelet Count 188 k/uL (150-450); RBC 4.51 m/uL (3.80-5.40); RDW 15.5 % (11.5-15.5); WBC 10.6 k/uL (3.8-10.6)
[2024-05-24 03:33] LABS: ALT 11 U/L (4-34); AST 21 U/L (14-36); African American GFR (CKD) 53 (>60 ml/min/1.73 sqM); Albumin 3.4 g/dL (3.5-5.0); Alkaline Phosphatase 88 U/L (38-126); Amylase 36 U/L (30-110); Anion Gap 7 mmol/L; Blood Urea Nitrogen 28 mg/dL (7-17); Calcium 8.9 mg/dL (8.4-10.2); Carbon Dioxide 27 mmol/L (22-30); Chloride 107 mmol/L (98-107); Glucose 120 mg/dL (74-99); Lipase 108 U/L (23-300); Non-African American GFR(CKD) 46 (>60 ml/min/1.73 sqM); Potassium 4.1 mmol/L (3.5-5.1); Sodium 141 mmol/L (137-145); Total Bilirubin 0.4 mg/dL (0.2-1.3); Total Protein 6.5 g/dL (6.3-8.2)
[2024-05-24 03:38] LABS: Prothrombin Time 10.8 sec (10.0-12.5)
[2024-05-24] MEDS: SODIUM CHLORIDE 0.9% 500 ML 500 ML IV STA (04:24)
[2024-05-24] MEDS: ONDANSETRON 4 MG/2 ML VIAL IVP STA (04:46)
[2024-05-24] MEDS ORDERED: VANCOMYCIN IV PER PHARMACY 1 EACH MISC MISCELLANE PRN (04:46)
[2024-05-24] MEDS: ACETAMINOPHEN TAB 500 MG TAB PO STA (04:46)
[2024-05-24] MEDS: VANCOMYCIN 2,000 MG in SODIUM CHLORIDE 0.9% 500 ML 500 ML IVPB SCH (05:30)
[2024-05-24] MEDS ORDERED: NALOXONE 0.4 MG/ML 1 ML VIAL IV PRN (06:37)
[2024-05-24] MEDS ORDERED: bisacodyL 5 MG TABLET.DR PO PRN (06:37)
[2024-05-24] MEDS ORDERED: MAG HYDROX/AL HYDROX/SIMETH 30 ML CUP PO PRN (06:37)
[2024-05-24] MEDS ORDERED: DOCUSATE 100 MG CAP PO PRN (06:37)
[2024-05-24] MEDS ORDERED: CALCIUM CARBONATE 500 MG CHEWABLE PO PRN (06:37)
[2024-05-24] MEDS ORDERED: traMADol 50 MG TAB PO PRN (06:37)
[2024-05-24] MEDS ORDERED: ACETAMINOPHEN TAB 325 MG TAB PO PRN (06:37)
--- NOTE | 2024-05-24 06:39 | XR ---
EXAM: XR Chest, 1 View CLINICAL HISTORY: ITS.REASON XR Reason: dizziness TECHNIQUE: Frontal view of the chest. COMPARISON: No relevant prior studies available. IMPRESSION: 1. Cardiomegaly. 2. Mildly prominent pulmonary vasculature. Findings may be due to pulmonary venous congestion.
--- NOTE | 2024-05-24 06:41 | XR ---
EXAM: 2 VIEWS OF THE RIGHT FEMUR AND 2 VIEWS OF THE RIGHT TIBIA/FIBULA CLINICAL HISTORY: ITS.REASON XR Reason: right hip/knee pain s/p fall TECHNIQUE: 2 views of the right femur and 2 views of the right tibia/fibula were obtained. COMPARISON: No relevant prior studies available. IMPRESSION: 1. Diffuse bone demineralization markedly limits evaluation. 2. No evidence of acutely displaced fracture or dislocation within the right femur or right tibia/fibula. Consider cross-sectional imaging if there is further concern. 3. Severe medial and lateral tibiofemoral compartment osteoarthrosis within the knee. Mild to moderate right hip osteoarthrosis noted.
--- NOTE | 2024-05-24 08:24 | P.HPIM ---
History of Present Illness H&P Date: 05/24/24 Chief Complaint: Dizziness This is a history and physical a 69-year-old white female with known history of morbid obesity who has significant debility related to her immobility syndrome due to her morbid obesity. The patient was at home and was had significant dizziness but no chest pain no headache but fell. Evaluation in the emergency room initially is nominal. However she has a right lower extremity wound which is chronic and macerated. Most likely related to her obesity venous insufficiency and immobility. Is now admitted for appropriate treatment of this chronic wound no fever or chills. No significant nausea, vomiting or diarrhea. Review of Systems Constitutional: Reports weakness, Denies chills, Denies fever Eyes: denies blurred vision, denies pain Ears, nose, mouth and throat: Denies headache, Denies sore throat Cardiovascular: Denies chest pain, Denies shortness of breath Gastrointestinal: Denies abdominal pain, Denies diarrhea, Denies nausea, Denies vomiting Genitourinary: Denies dysuria, Denies hematuria Integumentary: Reports as per HPI, Reports foot/leg ulcers Psychiatric: Denies anxiety, Denies depression Past Medical History Past Medical History: Hypertension, Osteoarthritis (OA) Additional Past Medical History / Comment(s): lymphedema History of Any Multi-Drug Resistant Organisms: MRSA Date of last positivie culture/infection: 2015 MDRO Source:: Right Arm Past Surgical History: Section, Hernia Repair Additional Past Anesthesia/Blood Transfusion Reaction / Comment(s): Bradycardia with anesthetic Past Psychological History: No Psychological Hx Reported Past Alcohol Use History: None Reported Past Drug Use History: None Reported - Past Family History Father Additional Family Medical History / Comment(s): HEart Disease , HTN Mother Family Medical History: Hypertension Medications and Allergies Home Medications Medication Instructions Recorded Confirmed Type Furosemide [Lasix] 20 mg PO Q7D 05/24/24 05/24/24 History HYDROcodone/APAP 10-325MG [[place] 0.5 tab PO Q8H PRN 05/24/24 05/24/24 History 10-325] Metoprolol Tartrate [Lopressor] 50 mg PO DAILY 05/24/24 05/24/24 History Pnv,Calcium 72/Iron/Folic Acid 1 tab PO DAILY 05/24/24 05/24/24 History [Westab Plus Tablet] Allergies Allergy/AdvReac Type Severity Reaction Status Date / Time Latex, Natural Rubber Allergy Unknown Verified 05/24/24 07:28 Physical Exam Vitals: Vital Signs Temp Pulse Resp BP Pulse Ox 05/24/24 07:27 98.2 F 66 20 176/84 98 05/24/24 06:00 67 16 157/80 96 05/24/24 05:05 68 18 179/74 97 05/24/24 04:42 64 18 181/72 98 05/24/24 02:12 97.4 F L 62 18 158/128 98 Intake and Output 05/23/24 05/24/24 05/24/24 22:59 06:59 14:59 Other: Weight 145.15 kg - Constitutional General appearance: morbidly obese - EENT Eyes: EOMI - Neck Neck: no lymphadenopathy - Respiratory Respiratory: bilateral: diminished - Cardiovascular Rhythm: regular Heart sounds: normal: S1, S2 Abnormal Heart Sounds: no S3 Gallop - Gastrointestinal General gastrointestinal: soft, no tenderness - Integumentary Integumentary: cellulitis, rash - Musculoskeletal Musculoskeletal: generalized weakness - Psychiatric Psychiatric: A&O x's 3, appropriate affect, intact judgment & insight Results CBC & Chem 7: 05/24/24 02:50 05/24/24 02:50 Labs: Abnormal Lab Results - Last 24 Hours (Table) 05/24/24 05/24/24 05/24/24 Range/Units 02:50 02:50 02:50 Neutrophils # 8.4 H (1.3-7.7) k/uL BUN 28 H (7-17) mg/dL Creatinine 1.21 H (0.52-1.04) mg/dL Glucose 120 H (74-99) mg/dL C-Reactive Protein 2.7 H (<1.0) mg/dL Albumin 3.4 L (3.5-5.0) g/dL Thrombosis Risk Factor Assmnt - Choose All That Apply Any of the Below Risk Factors Present?: Yes Each Factor Represents 1 point: Medical pt on bed rest, Swollen legs (current) Other Risk Factors: Yes Each Risk Factor Represents 2 Points: Age 61-74 years, Patient confined to bed Thrombosis Risk Factor Assessment Total Risk Factor Score: 6 Thrombosis Risk Factor Assessment Level: High Risk Assessment and Plan (1) Dizziness Current Visit: Yes Status: Acute Code(s): R42 - DIZZINESS AND GIDDINESS SNOMED Code(s): 313185353 (2) Fall Current Visit: Yes Status: Acute Code(s): W19.XXXA - UNSPECIFIED FALL, INITIAL ENCOUNTER SNOMED Code(s): 0562897 (3) Wound of lower extremity Current Visit: Yes Status: Acute Code(s): S81.809A - UNSPECIFIED OPEN WOUND, UNSPECIFIED LOWER LEG, INIT ENCNTR SNOMED Code(s): 507176969 Plan: Wound care. Check echocardiogram and duplex carotid. Check CBC and CMP in AM. Empiric antibiotic treatment. Consult infectious disease as well. Prognosis is guarded secondary to multiple comorbidities. See orders otherwise. Time with Patient: Greater than 30
[2024-05-24] MEDS: ceFAZolin 3 GM in SODIUM CHLORIDE 0.9% 100 ML IVPB SCH (08:57)
[2024-05-24] MEDS: FAMOTIDINE 20 MG TAB PO SCH (08:58)
[2024-05-24] MEDS: METOPROLOL TARTRATE 50 MG TAB PO SCH (08:58)
[2024-05-24] MEDS: MULTIVITAMINS, THERA 1 EACH TAB PO SCH (08:58)
[2024-05-24] MEDS: ENOXAPARIN 40 MG/0.4 ML SYRINGE SQ SCH (08:58)
[2024-05-24] MEDS: HYDROcodone/APAP 10-325MG 1 EACH TAB PO PRN (09:00)
[2024-05-24 13:07] LABS: Appearance,Urine Cloudy (Clear); Bacteria,Urine Rare /hpf; Bilirubin,Urine Negative (Negative); Blood,Urine Large (Negative); Color,Urine Light Yellow; Glucose,Urine (UA) Negative (Negative); Ketones,Urine Negative (Negative); Leukocyte Esterase,Urine Large (Negative); Nitrite,Urine Negative (Negative); PH, Urine 5.5 (5.0-8.0); Protein,Urine 1+ (Negative); RBC,Urine >182 /hpf (0-5); Squamous Epithelial Cell,Urine <1 /hpf (0-4); Urobilinogen,Urine <2.0 mg/dL (<2.0); WBC,Urine 62 /hpf (0-5)
--- NOTE | 2024-05-24 15:34 | P.GSCN ---
History of Present Illness Consult date: 05/24/24 History of present illness: CHIEF COMPLAINT: Dizziness and fall HISTORY OF PRESENT ILLNESS: This is a 69-year-old female with morbid obesity and limited mobility. She presented to the ER with dizziness while sitting on the commode having BM. She has a chronic right thigh wound. The wound has been present for a year. She denies any injury to it. She denies being diabetic. She has not been followed by wound care outpatient. X-rays completed showed no evidence of fracture. PAST MEDICAL HISTORY: Hypertension, osteoarthritis, lymphedema PAST SURGICAL HISTORY: and hernia repair MEDICATIONS: See below ALLERGIES: See below SOCIAL HISTORY: No illicit drug use. REVIEW OF SYSTEMS: CONSTITUTIONAL: Denies fever or chills. HEENT: Denies blurred vision, vision changes, or eye pain. Denies hemoptysis CARDIOVASCULAR: Denies chest pain or pressure. RESPIRATORY: No shortness of breath. GASTROINTESTINAL: See HPI for pertinent findings HEMATOLOGIC: Denies bleeding disorders. GENITOURINARY: Denies any blood in urine or increased urinary frequency. SKIN: Denies pruitis. Denies rash. PHYSICAL EXAM: VITAL SIGNS: Reviewed GENERAL: Well-developed in no acute distress. ABDOMEN: Soft. Obese. Nondistended nontender NEUROLOGIC: Alert and oriented. Cranial nerves II through XII grossly intact. Extremities: Large right lateral upper thigh wound. Healthy appearance. Area is excoriated with no drainage. No induration. No odor. No evidence of cellulitis. LABORATORY DATA: WBC 10.6 Hgb 12 platelets 188 Sodium 141 potassium 4.1 creatinine 1.21 IMAGING: Right femur x-ray no evidence of acute displaced fracture or dislocation. Right tibia fibula no evidence of fracture or dislocation ASSESSMENT: 1. Right upper thigh leg wound. Possibly pressure ulcer. Patient is obese and has limited mobility. PLAN: -No plans for surgical debridement -Continue local wound care and antibiotics per infectious disease -Recommend offloading Thank you for this consultation Physician Caddie note has been reviewed by physician. Signing provider agrees with the documented findings, assessment, and plan of care. Past Medical History Past Medical History: Hypertension, Osteoarthritis (OA) Additional Past Medical History / Comment(s): lymphedema History of Any Multi-Drug Resistant Organisms: MRSA Year Discovered:: 2015 MDRO Source:: Right Arm Past Surgical History: Section, Hernia Repair Additional Past Anesthesia/Blood Transfusion Reaction / Comm: Bradycardia with anesthetic Past Psychological History: No Psychological Hx Reported Past Alcohol Use History: None Reported Past Drug Use History: None Reported - Past Family History Father Additional Family Medical History / Comment(s): HEart Disease , HTN Mother Family Medical History: Hypertension Medications and Allergies Home Medications Medication Instructions Recorded Confirmed Type Furosemide [Lasix] 20 mg PO Q7D 05/24/24 05/24/24 History HYDROcodone/APAP 10-325MG [[place] 0.5 tab PO Q8H PRN 05/24/24 05/24/24 History 10-325] Metoprolol Tartrate [Lopressor] 50 mg PO DAILY 05/24/24 05/24/24 History Pnv,Calcium 72/Iron/Folic Acid 1 tab PO DAILY 05/24/24 05/24/24 History [[place] Plus Tablet] Allergies Allergy/AdvReac Type Severity Reaction Status Date / Time Latex, Natural Rubber Allergy Unknown Verified 05/24/24 07:28 Surgical - Exam Osteopathic Statement: *. No significant issues noted on an osteopathic structural exam other than those noted in the History and Physical/Consult. Vital Signs Temp Pulse Resp BP Pulse Ox 97.4 F L 62 18 158/128 98 05/24/24 02:12 05/24/24 02:12 05/24/24 02:12 05/24/24 02:12 05/24/24 02:12 Results - Labs 05/24/24 02:50 05/24/24 02:50 Abnormal Lab Results - Last 24 Hours (Table) 05/24/24 05/24/24 05/24/24 Range/Units 02:50 02:50 02:50 Neutrophils # 8.4 H (1.3-7.7) k/uL BUN 28 H (7-17) mg/dL Creatinine 1.21 H (0.52-1.04) mg/dL Glucose 120 H (74-99) mg/dL C-Reactive Protein 2.7 H (<1.0) mg/dL Albumin 3.4 L (3.5-5.0) g/dL Diabetes panel 05/24/24 Range/Units 02:50 Sodium 141 (137-145) mmol/L Potassium 4.1 (3.5-5.1) mmol/L Chloride 107 (98-107) mmol/L Carbon Dioxide 27 (22-30) mmol/L BUN 28 H (7-17) mg/dL Creatinine 1.21 H (0.52-1.04) mg/dL Glucose 120 H (74-99) mg/dL Calcium 8.9 (8.4-10.2) mg/dL AST 21 (14-36) U/L ALT 11 (4-34) U/L Alkaline Phosphatase 88 (38-126) U/L Total Protein 6.5 (6.3-8.2) g/dL Albumin 3.4 L (3.5-5.0) g/dL Calcium panel 05/24/24 Range/Units 02:50 Calcium 8.9 (8.4-10.2) mg/dL Albumin 3.4 L (3.5-5.0) g/dL Pituitary panel 05/24/24 Range/Units 02:50 Sodium 141 (137-145) mmol/L Potassium 4.1 (3.5-5.1) mmol/L Chloride 107 (98-107) mmol/L Carbon Dioxide 27 (22-30) mmol/L BUN 28 H (7-17) mg/dL Creatinine 1.21 H (0.52-1.04) mg/dL Glucose 120 H (74-99) mg/dL Calcium 8.9 (8.4-10.2) mg/dL Adrenal panel 05/24/24 Range/Units 02:50 Sodium 141 (137-145) mmol/L Potassium 4.1 (3.5-5.1) mmol/L Chloride 107 (98-107) mmol/L Carbon Dioxide 27 (22-30) mmol/L BUN 28 H (7-17) mg/dL Creatinine 1.21 H (0.52-1.04) mg/dL Glucose 120 H (74-99) mg/dL Calcium 8.9 (8.4-10.2) mg/dL Total Bilirubin 0.4 (0.2-1.3) mg/dL AST 21 (14-36) U/L ALT 11 (4-34) U/L Alkaline Phosphatase 88 (38-126) U/L Total Protein 6.5 (6.3-8.2) g/dL Albumin 3.4 L (3.5-5.0) g/dL Assessment and Plan Assessment: local wound care no debridement continue abx Time with Patient: Less than 30
--- NOTE | 2024-05-24 23:03 | P.CONS ---
History of Present Illness - Reason for Consult Consult date: 05/24/24 Lower extremity wound Requesting physician: Javier Dunne - Chief Complaint Weakness and fell x 1 day - History of Present Illness Patient is a 69-year-old female with a past medical history significant for hypertension osteoarthritis lymphedema in this patient who did have a chronic nonhealing ulcer to the right posterior thigh patient has been brought into the hospital for evaluation of dizziness apparently the patient was sitting on her commode when she does have bowel movement and began to feel dizzy and this caused her to fall forward patient did not lose any consciousness patient was on the floor for about 30 minutes before the patient was found by th e daughter and the patient has been brought to the hospital patient denies high- grade fever or any chills patient denies having any headache or URI symptoms no chest pain shortness of breath or cough no abdominal pain or diarrhea patient complaining some pain to the right posterior thigh wound is mostly dull aching mild intense without radiation did have some swelling redness but no foul- smelling drainage patient did have white count of 10.6 creatinine is 1.1 liver isms are normal CRP is 2.7 influenza RSV COVID testing was negative patient be started on cefazolin and vancomycin, infectious disease was consulted for further management of antibiotic therapy Review of Systems Positive point and negatives has been mentioned in the HPI, complete review of systems was performed and all other systems are negative Past Medical History Past Medical History: Hypertension, Osteoarthritis (OA) Additional Past Medical History / Comment(s): lymphedema History of Any Multi-Drug Resistant Organisms: MRSA Year Discovered:: 2015 MDRO Source:: Right Arm Past Surgical History: Section, Hernia Repair Additional Past Anesthesia/Blood Transfusion Reaction / Comm: Bradycardia with anesthetic Past Psychological History: No Psychological Hx Reported Past Alcohol Use History: None Reported Past Drug Use History: None Reported - Past Family History Father Additional Family Medical History / Comment(s): HEart Disease , HTN Mother Family Medical History: Hypertension Medications and Allergies Home Medications Medication Instructions Recorded Confirmed Type Furosemide [Lasix] 20 mg PO Q7D 05/24/24 05/24/24 History HYDROcodone/APAP 10-325MG [[place] 0.5 tab PO Q8H PRN 05/24/24 05/24/24 History 10-325] Metoprolol Tartrate [Lopressor] 50 mg PO DAILY 05/24/24 05/24/24 History Pnv,Calcium 72/Iron/Folic Acid 1 tab PO DAILY 05/24/24 05/24/24 History [[place] Plus Tablet] Allergies Allergy/AdvReac Type Severity Reaction Status Date / Time Latex, Natural Rubber Allergy Unknown Verified 05/24/24 07:28 Physical Exam Vitals: Vital Signs Temp Pulse Resp BP Pulse Ox 05/24/24 08:58 76 19 162/75 05/24/24 07:27 98.2 F 66 20 176/84 98 05/24/24 06:00 67 16 157/80 96 05/24/24 05:05 68 18 179/74 97 05/24/24 04:42 64 18 181/72 98 05/24/24 02:12 97.4 F L 62 18 158/128 98 Intake and Output 05/23/24 05/24/24 05/24/24 22:59 06:59 14:59 Other: Weight 145.15 kg 145.15 kg GENERAL DESCRIPTION: Elderly female lying in bed, no distress. No tachypnea or accessory muscle of respiration use. HEENT: Shows Pallor , no scleral icterus. Oral mucous membrane is dry. No pharyngeal erythema or thrush NECK: Trachea central, no thyromegaly. LUNGS: Unlabored breathing. Clear to auscultation anteriorly. No wheeze or crackle. HEART: S1, S2, regular rate and rhythm. No loud murmur ABDOMEN: Soft, no tenderness , guarding or rigidity, no organomegaly EXTREMITIES: Right posterior thigh did have a wound with no slough tissue with minimal surrounding redness and some maceration no foul-smelling drainage SKIN: No rash, no masses palpable. NEUROLOGICAL: The patient is awake, alert, oriented x3, mood and affect normal. Results CBC & Chem 7: 05/25/24 06:01 05/25/24 06:01 Labs: Abnormal Lab Results - Last 24 Hours (Table) 05/24/24 05/24/24 05/24/24 Range/Units 02:50 02:50 02:50 Neutrophils # 8.4 H (1.3-7.7) k/uL BUN 28 H (7-17) mg/dL Creatinine 1.21 H (0.52-1.04) mg/dL Glucose 120 H (74-99) mg/dL C-Reactive Protein 2.7 H (<1.0) mg/dL Albumin 3.4 L (3.5-5.0) g/dL Assessment and Plan (1) Unspecified open wound, right thigh, initial encounter Current Visit: Yes Status: Acute Code(s): S71.101A - UNSPECIFIED OPEN WOUND, RIGHT THIGH, INITIAL ENCOUNTER SNOMED Code(s): 81189067787266866 (2) Cellulitis of right thigh Current Visit: Yes Status: Acute Code(s): L03.115 - CELLULITIS OF RIGHT LOWER LIMB SNOMED Code(s): 46992705149834220 Plan: 1patient with right posterior thigh ulcer and this patient presented to hospital with dizziness and a fall with a chronic ulcer to the right posterior thigh area with minimal cellulitis likely from gram-positive skin robert. 2patient with renal insufficiency high risk for nephrotoxicity from vancomycin 3we will keep the patient cefazolin however discontinue vancomycin 4local wound care with dry Aquacel silver dressing change q. 48-hour We will follow on clinical condition and cultures to further adjust medication if needed Thank you for this consultation we will follow the patient along with you Dictation was produced using [employer] dictation software. please excuse any grammatical, word or spelling errors. Time with Patient: Greater than 30
[2024-05-25 08:23] LABS: HCT 32.4 % (37.2-46.3); MCH 26.7 pg (27.0-32.0); MCHC 30.9 g/dL (32.0-37.0); MCV 86.6 FL (80.0-97.0); Mean Platelet Volume 10.7 FL (9.5-12.2); NRBC Per 100 WBC 0 X 10*3/uL (0.00-0.01); Platelet Count 174 X 10*3/uL (140-440); RBC 3.74 X 10*6/uL (4.10-5.20); RDW 15.7 % (11.5-14.5); WBC 7.22 X 10*3/uL (4.50-10.00)
[2024-05-25 08:40] LABS: ALT 8 U/L (8-44); AST 19 U/L (13-35); Albumin 2.9 g/dL (3.8-4.9); Albumin/Globulin Ratio 1.26 Ratio (1.60-3.17); Alkaline Phosphatase 70 U/L (41-126); Blood Urea Nitrogen 21.4 mg/dL (9.0-27.0); Calcium 8.1 mg/dL (8.7-10.3); Carbon Dioxide 24.3 mmol/L (21.6-31.8); Chloride 108 mmol/L (96-109); Globulin 2.3 g/dL (1.6-3.3); Glucose 100 mg/dL (70-110); Potassium 4.6 mmol/L (3.5-5.5); Sodium 141 mmol/L (135-145); Total Bilirubin 0.4 mg/dL (0.3-1.2); Total Protein 5.2 g/dL (6.2-8.2)
[2024-05-25] MEDS: FAMOTIDINE 20 MG TAB PO SCH (11:59)
--- NOTE | 2024-05-25 13:09 | P.PN ---
Subjective Progress Note Date: 05/25/24 CHIEF COMPLAINT: Right upper thigh wound HISTORY OF PRESENT ILLNESS: Patient has no new complaints. Wound care being completed to the right leg wound. Afebrile. WBC is 7.22 hemoglobin 10.0 PHYSICAL EXAM: VITAL SIGNS: Reviewed. GENERAL: Well-developed in no acute distress. ABDOMEN: Soft. Nondistended. Nontender. NEUROLOGIC: Alert and oriented. Cranial nerves II through XII grossly intact. Extremities right lateral thigh leg wound dressing is intact ASSESSMENT: 1. Right upper thigh leg wound. Possibly pressure ulcer. Patient is obese and has limited mobility. PLAN: -No plans for surgical debridement -Continue local wound care per infectious disease recommendations -Antibiotics per ID service -Continue offloading -Surgical service will sign off. Please call with any questions or concerns Physician Social Services Assistant note has been reviewed by physician. Signing provider agrees with the documented findings, assessment, and plan of care. Objective - Vital Signs Vital signs: Vital Signs Temp 97.5 F L 05/25/24 12:51 Pulse 147 H 05/25/24 12:51 Resp 16 05/25/24 12:51 BP 121/83 05/25/24 12:51 Pulse Ox 97 05/25/24 12:51 FiO2 Intake & Output 05/24/24 05/25/24 05/25/24 18:59 06:59 18:59 Intake Total 118 118 Output Total 250 Balance 118 -250 118 Weight 145.15 kg Intake: Oral 118 118 Output: Urine 250 - Labs CBC & Chem 7: 05/25/24 06:01 05/25/24 06:01 Labs: Abnormal Lab Results - Last 24 Hours (Table) 05/24/24 05/25/24 05/25/24 Range/Units 12:51 06:01 06:01 RBC 3.74 L (4.10-5.20) X 10*6/uL Hgb 10.0 L (12.0-15.0) g/dL Hct 32.4 L (37.2-46.3) % MCH 26.7 L (27.0-32.0) pg MCHC 30.9 L (32.0-37.0) g/dL RDW 15.7 H (11.5-14.5) % BUN/Creatinine Ratio 21.40 H (12.00-20.00) Ratio Calcium 8.1 L (8.7-10.3) mg/dL Total Protein 5.2 L (6.2-8.2) g/dL Albumin 2.9 L (3.8-4.9) g/dL Albumin/Globulin Ratio 1.26 L (1.60-3.17) Ratio Urine Appearance Cloudy H (Clear) Urine Protein 1+ H (Negative) Urine Blood Large H (Negative) Ur Leukocyte Esterase Large H (Negative) Urine RBC >182 H (0-5) /hpf Urine WBC 62 H (0-5) /hpf Urine Bacteria Rare H (None) /hpf
[2024-05-25 14:39] VITALS: BMI 53.2
--- NOTE | 2024-05-25 14:59 | P.PN ---
Subjective Progress Note Date: 05/25/24 Principal diagnosis: Reason for follow-up is right posterior thigh wound and cellulitis Patient is a 69-year-old female with a past medical history significant for hypertension osteoarthritis lymphedema in this patient who did have a chronic nonhealing ulcer to the right posterior thigh presented to hospital with dizziness and fall, infectious disease consulted for right posterior thigh wound and cellulitis. On today's evaluation that is 05/25/2024, Patient is afebrile patient is currently on room air and denies having any shortness of breath, the patient denies any chest pain or cough, the patient denies any nausea vomiting did not have any abdominal pain and no diarrhea patient denies any worsening pain to the right posterior thigh wound area. Patient white count of 7.22, creat is 1.0 Objective - Vital Signs Vital signs: Vital Signs Temp 97.5 F L 05/25/24 12:51 Pulse 147 H 05/25/24 12:51 Resp 16 05/25/24 12:51 BP 121/83 05/25/24 12:51 Pulse Ox 97 05/25/24 12:51 FiO2 Intake & Output 05/24/24 05/25/24 05/25/24 18:59 06:59 18:59 Intake Total 118 358 Output Total 250 Balance 118 -250 358 Weight 145.15 kg 145.15 kg Intake: Oral 118 358 Output: Urine 250 - Exam GENERAL DESCRIPTION: An elderly female lying in bed in no distress RESPIRATORY SYSTEM: Unlabored breathing , decreased breath sounds at bases HEART: S1 S2 regular rate and rhythm , ABDOMEN: Soft , no tenderness EXTREMITIES: Right posterior thigh wound is currently dressed - Labs CBC & Chem 7: 05/25/24 06:01 05/25/24 06:01 Labs: Abnormal Lab Results - Last 24 Hours (Table) 05/25/24 05/25/24 Range/Units 06:01 06:01 RBC 3.74 L (4.10-5.20) X 10*6/uL Hgb 10.0 L (12.0-15.0) g/dL Hct 32.4 L (37.2-46.3) % MCH 26.7 L (27.0-32.0) pg MCHC 30.9 L (32.0-37.0) g/dL RDW 15.7 H (11.5-14.5) % BUN/Creatinine Ratio 21.40 H (12.00-20.00) Ratio Calcium 8.1 L (8.7-10.3) mg/dL Total Protein 5.2 L (6.2-8.2) g/dL Albumin 2.9 L (3.8-4.9) g/dL Albumin/Globulin Ratio 1.26 L (1.60-3.17) Ratio Assessment and Plan (1) Unspecified open wound, right thigh, initial encounter Current Visit: Yes Status: Acute Code(s): S71.101A - UNSPECIFIED OPEN WOUND, RIGHT THIGH, INITIAL ENCOUNTER SNOMED Code(s): 94013180623471255 (2) Cellulitis of right thigh Current Visit: Yes Status: Acute Code(s): L03.115 - CELLULITIS OF RIGHT LOWER LIMB SNOMED Code(s): 71509585996558419 Plan: 1patient with right posterior thigh ulcer and this patient presented to hospital with dizziness and a fall with a chronic ulcer to the right posterior thigh area with minimal cellulitis likely from gram-positive skin robert. 2patient with renal insufficiency high risk for nephrotoxicity from vancomycin 3local wound care with dry Aquacel silver dressing change q. 48-hour and continue with cefazolin Dictation was produced using [employer] dictation software. please excuse any grammatical, word or spelling errors. Time with Patient: Less than 30
--- NOTE | 2024-05-26 05:38 | P.PN ---
Subjective Progress Note Date: 05/25/24 This is a history and physical a 69-year-old white female with known history of morbid obesity who has significant debility related to her immobility syndrome due to her morbid obesity. The patient was at home and was had significant dizziness but no chest pain no headache but fell. Evaluation in the emergency room initially is nominal. However she has a right lower extremity wound which is chronic and macerated. Most likely related to her obesity venous insufficiency and immobility. Is now admitted for appropriate treatment of this chronic wound no fever or chills. No significant nausea, vomiting or diarrhea. 05/25/2024 Patient is seen and evaluated in follow-up today with infectious disease following maintained on IV cefazolin and wound care to the right thigh with concerns of cellulitis. Patient denies any pain and reports to feeling improved. Patient reports she lives with her family and plans on returning home and is mostly bedbound. Patient is afebrile denies any chest pain or shortness of breath. Patient reports to tolerating diet with no reported nausea or vomiting. Review of systems: Constitutional: No reports of fatigue, fever, or chills Cardiovascular: No reports of chest pain or palpitations Respiratory: No reports of shortness of breath or cough GI: No reports of nausea, vomiting, or diarrhea : No reports of dysuria or retention Neurovascular: No reports of weakness, patient reports she is bedbound All medications have been reviewed Physical exam: Gen: This is a 69-year-old female who is awake, alert and oriented x 3, well- developed, elderly appearing, morbidly obese HEENT: Head is atraumatic, normocephalic. Pupils equal, round. Sclerae is anicteric. NECK: Supple. No JVD. No lymphadenopathy. No thyromegaly. LUNGS: Clear to auscultation. No wheezes or rhonchi. No intercostal retractions. HEART: Regular rate and rhythm. No murmur. ABDOMEN: Soft. Obese bowel sounds are present. No masses. No tenderness. EXTREMITIES: Chronic lower extremity edema and right side lymphedema, no calf tenderness. NEUROLOGICAL: Patient is awake, alert and oriented x3. Cranial nerves 2 through 12 are grossly intact. Diffusely weak Assessment: Dizziness with fall, patient reports she was on the commode and felt dizzy and fell forward onto her hands and knees, no LOC likely secondary to dehydration as patient has been having episodes of vomiting x 3 Acute kidney injury, secondary to mild dehydration with vomiting Chronic right lower extremity wound with concerns of cellulitis, present on admission Morbid obesity with a BMI of 53.3 History of hypertension History of osteoarthritis GI prophylaxis DVT prophylaxis Full code Plan: Patient being continued on antibiotics in the form of cefazolin with infectious disease along with wound care consulted Continue local wound care to the right thigh and offloading if possible Patient reports she lives with family and plans on returning home there and is mostly bedbound Will discuss with infectious disease regarding discharge planning Possible discharge in next 24 to 48 hours The impression and plan of care has been dictated by Shruthi Hill, Nurse Practitioner as directed. Dr. Christiano MD I have performed a history and examination and MDM of this patient, discussed the same with the dictator, and agree with the dictator's assessment and plan as written ,documented as a scribe. Based on total visit time, I have performed more than 50% of the visit. Objective - Vital Signs Vital signs: Vital Signs Temp 97.5 F L 05/25/24 07:05 Pulse 75 05/25/24 07:05 Resp 16 05/25/24 07:05 BP 143/71 05/25/24 07:05 Pulse Ox 96 05/25/24 07:05 FiO2 Intake & Output 05/24/24 05/25/24 05/25/24 18:59 06:59 18:59 Intake Total 118 118 Output Total 250 Balance 118 -250 118 Weight 145.15 kg Intake: Oral 118 118 Output: Urine 250 - Labs CBC & Chem 7: 05/25/24 06:01 05/25/24 06:01 Labs: Abnormal Lab Results - Last 24 Hours (Table) 05/24/24 05/25/24 05/25/24 Range/Units 12:51 06:01 06:01 RBC 3.74 L (4.10-5.20) X 10*6/uL Hgb 10.0 L (12.0-15.0) g/dL Hct 32.4 L (37.2-46.3) % MCH 26.7 L (27.0-32.0) pg MCHC 30.9 L (32.0-37.0) g/dL RDW 15.7 H (11.5-14.5) % BUN/Creatinine Ratio 21.40 H (12.00-20.00) Ratio Calcium 8.1 L (8.7-10.3) mg/dL Total Protein 5.2 L (6.2-8.2) g/dL Albumin 2.9 L (3.8-4.9) g/dL Albumin/Globulin Ratio 1.26 L (1.60-3.17) Ratio Urine Appearance Cloudy H (Clear) Urine Protein 1+ H (Negative) Urine Blood Large H (Negative) Ur Leukocyte Esterase Large H (Negative) Urine RBC >182 H (0-5) /hpf Urine WBC 62 H (0-5) /hpf Urine Bacteria Rare H (None) /hpf
[2024-05-26] MEDS: ZINC OXIDE PASTE (Z-GUARD) 1 APPLIC TOPICAL PRN (11:36)
[2024-05-26] MEDS: NYSTATIN 100,000 UNIT/GM POWD 15 GM TOPICAL SCH (13:15)
--- NOTE | 2024-05-26 15:14 | P.PN ---
Subjective Progress Note Date: 05/26/24 Principal diagnosis: Reason for follow-up is right posterior thigh wound and cellulitis Patient is a 69-year-old female with a past medical history significant for hypertension osteoarthritis lymphedema in this patient who did have a chronic nonhealing ulcer to the right posterior thigh presented to hospital with dizziness and fall, infectious disease consulted for right posterior thigh wound and cellulitis. On today's evaluation that is 05/26/2024, patient has been afebrile, patient is breathing comfortably and is currently on room air, patient denies having any significant cough no chest pain, patient denies nausea vomiting or diarrhea and no abdominal pain, denies any worsening pain to the right thigh wound area. No new lab has been obtained today urine culture have been negative Objective - Vital Signs Vital signs: Vital Signs Temp 97.9 F 05/26/24 08:00 Pulse 104 H 05/26/24 08:00 Resp 16 05/26/24 08:00 BP 118/86 05/26/24 08:00 Pulse Ox 99 05/26/24 08:00 FiO2 Intake & Output 05/25/24 05/26/24 05/26/24 18:59 06:59 18:59 Intake Total 1374 Output Total 400 500 Balance 974 -500 Weight 145.15 kg Intake: Oral 1374 Output: Urine 400 500 Other: Voiding Method External Catheter External Catheter - Exam GENERAL DESCRIPTION: An elderly female lying in bed in no distress RESPIRATORY SYSTEM: Unlabored breathing , decreased breath sounds at bases HEART: S1 S2 regular rate and rhythm , ABDOMEN: Soft , no tenderness EXTREMITIES: Right posterior thigh wound is currently dressed - Labs CBC & Chem 7: 05/25/24 06:01 05/25/24 06:01 Labs: Microbiology - Last 24 Hours (Table) 05/24/24 12:51 Urine Culture - Final Urine,Voided Assessment and Plan (1) Unspecified open wound, right thigh, initial encounter Current Visit: Yes Status: Acute Code(s): S71.101A - UNSPECIFIED OPEN WOUND, RIGHT THIGH, INITIAL ENCOUNTER SNOMED Code(s): 67496200310264878 (2) Cellulitis of right thigh Current Visit: Yes Status: Acute Code(s): L03.115 - CELLULITIS OF RIGHT LOWER LIMB SNOMED Code(s): 33750216812706712 Plan: 1patient with right posterior thigh ulcer and this patient presented to hospital with dizziness and a fall with a chronic ulcer to the right posterior thigh area with minimal cellulitis likely from gram-positive skin robert. 2patient with renal insufficiency high risk for nephrotoxicity from vancomycin 3local wound care with dry Aquacel silver dressing change q. 48-hour and continue with cefazolin will be able to finish therapy with oral Keflex on discharge Dictation was produced using [employer] dictation software. please excuse any grammatical, word or spelling errors. Time with Patient: Less than 30
[2024-05-26 19:48] LABS: Basophils % (A) 0 %; Eosinophils # (A) 0.2 k/uL (0-0.7); Eosinophils % (A) 3 %; HCT 35.9 % (34.0-46.0); HGB 11.1 gm/dL (11.4-16.0); Hypochromasia Marked; Lymphocytes % (A) 14 %; MCH 26.7 pg (25.0-35.0); MCHC 30.8 g/dL (31.0-37.0); MCV 86.6 fL (80.0-100.0); Mean Platelet Volume 7.6; Monocytes # (A) 0.4 k/uL (0-1.0); Monocytes % (A) 5 %; Neutrophils # (A) 5.5 k/uL (1.3-7.7); Neutrophils % (A) 76 %; Platelet Count 179 k/uL (150-450); RBC 4.15 m/uL (3.80-5.40); RDW 15.6 % (11.5-15.5); WBC 7.2 k/uL (3.8-10.6)
[2024-05-26] MEDS: PANTOPRAZOLE 40 MG/10 ML VIAL IVP SCH (21:06)
--- NOTE | 2024-05-27 06:09 | P.PN ---
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 The patient was at home and was had significant dizziness but no chest pain no headache but fell. Evaluation in the emergency room initially is nominal. However she has a right lower extremity wound which is chronic and macerated. Most likely related to her obesity venous insufficiency and immobility. Is now admitted for appropriate treatment of this chronic wound no fever or chills. No significant nausea, vomiting or diarrhea. 05/25/2024 Patient is seen and evaluated in follow-up today with infectious disease following maintained on IV cefazolin and wound care to the right thigh with concerns of cellulitis. Patient denies any pain and reports to feeling improved. Patient reports she lives with her family and plans on returning home and is mostly bedbound. Patient is afebrile denies any chest pain or shortness of breath. Patient reports to tolerating diet with no reported nausea or vomiting. 05/26/2024 Patient is seen in follow-up this morning initially scheduled to be discharged although reports her daughter is currently working and her son is not home for the weekend yet and she feels she is unsafe to be discharged as she will be home alone and is bedbound requiring Luis lift and assistance. Patient is maintained on IV cefazolin with infectious disease following continuing with wound care for that right thigh wound. Patient will continue on a week of oral Keflex on discharge along with continued wound care. Per nursing staff patient had a bowel movement and was bloody and per rectum, will reconsult general surgery for evaluation. Hemoglobin is stable and will follow-up on repeat labs. Review of systems: Constitutional: No reports of fatigue, fever, or chills Cardiovascular: No reports of chest pain or palpitations Respiratory: No reports of shortness of breath or cough GI: No reports of nausea, vomiting, or diarrhea : No reports of dysuria or retention Neurovascular: No reports of weakness, patient reports she is bedbound All medications have been reviewed Physical exam: Gen: This is a 69-year-old female who is awake, alert and oriented x 3, well- developed, elderly appearing, morbidly obese HEENT: Head is atraumatic, normocephalic. Pupils equal, round. Sclerae is anicteric. NECK: Supple. No JVD. No lymphadenopathy. No thyromegaly. LUNGS: Clear to auscultation. No wheezes or rhonchi. No intercostal retractions. HEART: Regular rate and rhythm. No murmur. ABDOMEN: Soft. Obese bowel sounds are present. No masses. No tenderness. EXTREMITIES: Chronic lower extremity edema and right side lymphedema, no calf tenderness. NEUROLOGICAL: Patient is awake, alert and oriented x3. Cranial nerves 2 through 12 are grossly intact. Diffusely weak Assessment: Dizziness with fall, patient reports she was on the commode and felt dizzy and fell forward onto her hands and knees, no LOC likely secondary to dehydration as patient has been having episodes of vomiting x 3 Possible rectal bleeding with bright red blood per rectum, suspicious for hemorrhoid Acute kidney injury, secondary to mild dehydration with vomiting Chronic right lower extremity wound with concerns of cellulitis, present on admission Morbid obesity with a BMI of 53.3 History of hypertension History of osteoarthritis GI prophylaxis DVT prophylaxis Full code Plan: Patient being continued on antibiotics in the form of cefazolin with infectious disease along with wound care. Patient will continue with oral Keflex on discharge for 1 week per ID Continue local wound care to the right thigh and offloading as much as possible Patient reports she lives with family and plans on returning home there and is mostly bedbound, patient was initially scheduled to be discharged although felt unsafe as her family is not currently home they are at work and she requires a Luis lift with assistance. Later this evening per nursing staff patient had a bowel movement that was bloody with bleeding per rectum. Hemoglobin was stable and will reconsult general surgery for evaluation of possible GI bleed versus hemorrhoid. Follow- up on repeat CBC. Patient is on Protonix and will hold Lovenox Due to multiple complex medical issues, overall prognosis is guarded The impression and plan of care has been dictated by Shruthi Hill, Nurse Practitioner as directed. Dr. Christiano MD I have performed a history and examination and MDM of this patient, discussed the same with the dictator, and agree with the dictator's assessment and plan as written ,documented as a scribe. Based on total visit time, I have performed more than 50% of the visit. Objective - Vital Signs Vital signs: Vital Signs Temp 97.9 F 05/26/24 08:00 Pulse 104 H 10/04/24 08:00 Resp 16 05/26/24 08:00 BP 118/86 05/26/24 08:00 Pulse Ox 99 05/26/24 08:00 FiO2 Intake & Output 05/25/24 05/26/24 05/26/24 18:59 06:59 18:59 Intake Total 1374 Output Total 400 500 Balance 974 -500 Weight 145.15 kg Intake: Oral 1374 Output: Urine 400 500 Other: Voiding Method External Catheter External Catheter - Labs CBC & Chem 7: 05/26/24 19:14 05/25/24 06:01 Labs: Microbiology - Last 24 Hours (Table) 05/24/24 12:51 Urine Culture - Final Urine,Voided
[2024-05-27 10:01] LABS: Basophils # (A) 0.04 X 10*3/uL (0.00-0.10); Basophils % (A) 0.5 %; Eosinophils % (A) 3.9 %; HGB 11.2 g/dL (12.0-15.0); Lymphocytes # (A) 1.98 X 10*3/uL (0.90-5.00); Lymphocytes % (A) 25.7 %; MCH 26.1 pg (27.0-32.0); MCHC 30.3 g/dL (32.0-37.0); MCV 86.2 FL (80.0-97.0); Mean Platelet Volume 11.8 FL (9.5-12.2); Monocytes # (A) 0.57 X 10*3/uL (0.20-1.00); Monocytes % (A) 7.4 %; NRBC Per 100 WBC 0 X 10*3/uL (0.00-0.01); Neutrophils # (A) 4.78 X 10*3/uL (1.80-7.70); Neutrophils % (A) 62.2 %; Platelet Count 176 X 10*3/uL (140-440); RBC 4.29 X 10*6/uL (4.10-5.20); RDW 15.6 % (11.5-14.5); WBC 7.69 X 10*3/uL (4.50-10.00)
[2024-05-27 10:08] LABS: Blood Urea Nitrogen 20.1 mg/dL (9.0-27.0); Calcium 8.6 mg/dL (8.7-10.3); Carbon Dioxide 21.2 mmol/L (21.6-31.8); Chloride 107 mmol/L (96-109); Glucose 101 mg/dL (70-110); Potassium 4.3 mmol/L (3.5-5.5); Sodium 142 mmol/L (135-145)
--- NOTE | 2024-05-27 10:12 | P.PN ---
Progress Note - Text Progress Note Date: 05/27/24 CHIEF COMPLAINT: Right upper thigh wound HISTORY OF PRESENT ILLNESS: Patient had one time bloody bowel movement yesterday where she passed some clots. She has not had any further bloody bowel movements since. She has never had a colonoscopy. She does have a history of hemorrhoids. PHYSICAL EXAM: VITAL SIGNS: Reviewed. GENERAL: Well-developed in no acute distress. ABDOMEN: Soft. Nondistended. Nontender. NEUROLOGIC: Alert and oriented. Cranial nerves II through XII grossly intact. Extremities right lateral thigh leg wound dressing is intact ASSESSMENT: 1. Right upper thigh leg wound. Possibly pressure ulcer. Patient is obese and has limited mobility. 2. GI Bleed PLAN: -No plans for surgical debridement -Continue local wound care per infectious disease recommendations -Antibiotics per ID service -Continue offloading -Monitor Hgb. Hgb has remained stable 11.1(10, 12) -I explained to patient she should have colonoscopy at some point and she stated that she will not get one -Further recs pending clinical course Sanjay Mejia DO [facility] [phone]
--- NOTE | 2024-05-27 13:38 | P.PN ---
Subjective Progress Note Date: 05/27/24 Principal diagnosis: Reason for follow-up is right posterior thigh wound and cellulitis Patient is a 69-year-old female with a past medical history significant for hypertension osteoarthritis lymphedema in this patient who did have a chronic nonhealing ulcer to the right posterior thigh presented to hospital with dizziness and fall, infectious disease consulted for right posterior thigh wound and cellulitis. On today's evaluation that is 05/27/2024, Patient is afebrile this morning patient denies having any chest pain shortness of breath or cough, the patient is currently on room air, patient denies any abdominal pain no diarrhea no nausea no vomiting and denies pain to the right thigh wound area. Patient white count 7.69, creatinine 1.0 Objective - Vital Signs Vital signs: Vital Signs Temp 97.9 F 05/27/24 07:40 Pulse 83 05/27/24 07:40 Resp 20 05/27/24 07:40 BP 141/85 05/27/24 07:40 Pulse Ox 97 05/27/24 07:40 FiO2 Intake & Output 05/26/24 05/27/24 05/27/24 18:59 06:59 18:59 Output Total 350 Balance -350 Output: Urine 350 Other: Voiding Method External Catheter # Voids 3 1 # Bowel Movements 1 1 - Exam GENERAL DESCRIPTION: An elderly female lying in bed in no distress RESPIRATORY SYSTEM: Unlabored breathing , decreased breath sounds at bases HEART: S1 S2 regular rate and rhythm , ABDOMEN: Soft , no tenderness EXTREMITIES: Right posterior thigh wound is currently dressed - Labs CBC & Chem 7: 05/27/24 06:13 05/27/24 06:13 Labs: Abnormal Lab Results - Last 24 Hours (Table) 05/26/24 05/27/24 05/27/24 Range/Units 19:14 06:13 06:13 Hgb 11.1 L 11.2 L (11.4-16.0) gm/dL Hct 37.0 L (37.2-46.3) % MCH 26.1 L (27.0-32.0) pg MCHC 30.8 L 30.3 L (31.0-37.0) g/dL RDW 15.6 H 15.6 H (11.5-15.5) % Carbon Dioxide 21.2 L (21.6-31.8) mmol/L Anion Gap 13.80 H (4.00-12.00) mmol/L BUN/Creatinine Ratio 20.10 H (12.00-20.00) Ratio Calcium 8.6 L (8.7-10.3) mg/dL Assessment and Plan (1) Unspecified open wound, right thigh, initial encounter Current Visit: Yes Status: Acute Code(s): S71.101A - UNSPECIFIED OPEN WOUND, RIGHT THIGH, INITIAL ENCOUNTER SNOMED Code(s): 57459725499926115 (2) Cellulitis of right thigh Current Visit: Yes Status: Acute Code(s): L03.115 - CELLULITIS OF RIGHT LOWER LIMB SNOMED Code(s): 76072563230689238 Plan: 1patient with right posterior thigh ulcer and this patient presented to hospital with dizziness and a fall with a chronic ulcer to the right posterior thigh area with minimal cellulitis likely from gram-positive skin robert. 2patient with renal insufficiency high risk for nephrotoxicity from vancomycin 3local wound care with dry Aquacel silver dressing change q. 48-hour patient is currently being treated with the cefazolin with a plan to finish therapy with oral Keflex on discharge Dictation was produced using [employer] dictation software. please excuse any grammatical, word or spelling errors. Time with Patient: Less than 30
--- NOTE | 2024-05-27 16:13 | PN ---
PROGRESS NOTE DATE OF SERVICE: 05/27/2024 SUBJECTIVE: This is a 69-year-old woman, who was admitted with dizziness secondary to dehydration, had rectal bleeding also. The patient also had right lower extremity cellulitis. No chest pain. No palpitation. PHYSICAL EXAMINATION: VITAL SIGNS: Pulse is 83, blood pressure 140/84, respirations 20. CHEST: Clear to auscultation. CARDIOVASCULAR: S1, S2. ABDOMEN: Soft. LEGS: Cellulitis present. LABORATORY DATA: Noted. Cultures are negative so far. ASSESSMENT: 1. Dizziness and fall, possibly secondary to dehydration. 2. Rectal bleeding. 3. Acute kidney injury. 4. Right lower extremity cellulitis. 5. Multiple complex medical issues. RECOMMENDATIONS AND DISCUSSION: I recommend to continue current management and continue symptomatic treatment. Continue with antibiotics. Await cultures. I would recommend repeat labs. Closely follow with Infectious Disease and Dr. Dunne will follow on Wednesday. MMODL / IJN: [id number] /
--- NOTE | 2024-05-28 05:54 | P.PN ---
Progress Note - Text Progress Note Date: 05/28/24 CHIEF COMPLAINT: Right upper thigh wound HISTORY OF PRESENT ILLNESS:NAEO. No further bloody bowel movements. Hgb has remained stable. PHYSICAL EXAM: VITAL SIGNS: Reviewed. GENERAL: Well-developed in no acute distress. ABDOMEN: Soft. Nondistended. Nontender. NEUROLOGIC: Alert and oriented. Cranial nerves II through XII grossly intact. Extremities right lateral thigh leg wound dressing is intact ASSESSMENT: 1. Right upper thigh leg wound. Possibly pressure ulcer. Patient is obese and has limited mobility. 2. GI Bleed PLAN: -No plans for surgical debridement -Continue local wound care per infectious disease recommendations -Antibiotics per ID service -Continue offloading -Monitor Hgb. Hgb has remained stable -Recommend outpatient colonoscopy -Further recs pending clinical course Sanjay Mejia DO [facility] [phone]
[2024-05-28 09:17] LABS: Basophils # (A) 0.03 X 10*3/uL (0.00-0.10); Basophils % (A) 0.5 %; Eosinophils # (A) 0.28 X 10*3/uL (0.04-0.35); Eosinophils % (A) 4.8 %; HCT 31.5 % (37.2-46.3); HGB 9.6 g/dL (12.0-15.0); Lymphocytes # (A) 1.54 X 10*3/uL (0.90-5.00); Lymphocytes % (A) 26.2 %; MCH 26.4 pg (27.0-32.0); MCHC 30.5 g/dL (32.0-37.0); MCV 86.8 FL (80.0-97.0); Mean Platelet Volume 11.1 FL (9.5-12.2); Monocytes % (A) 10.2 %; NRBC Per 100 WBC 0 X 10*3/uL (0.00-0.01); Neutrophils # (A) 3.42 X 10*3/uL (1.80-7.70); Neutrophils % (A) 58.1 %; Platelet Count 178 X 10*3/uL (140-440); RBC 3.63 X 10*6/uL (4.10-5.20); RDW 15.7 % (11.5-14.5); WBC 5.88 X 10*3/uL (4.50-10.00)
[2024-05-28 10:18] LABS: BUN/Creat Ratio 23.73 Ratio (12.00-20.00); Blood Urea Nitrogen 26.1 mg/dL (9.0-27.0); Calcium 8.1 mg/dL (8.7-10.3); Carbon Dioxide 26.5 mmol/L (21.6-31.8); Chloride 108 mmol/L (96-109); Glucose 89 mg/dL (70-110); Sodium 143 mmol/L (135-145)
[2024-05-28] MEDS: amLODIPine 10 MG TAB PO SCH (17:02)
--- NOTE | 2024-05-28 22:23 | P.PN ---
Subjective Progress Note Date: 05/28/24 Principal diagnosis: Reason for follow-up is right posterior thigh wound and cellulitis Patient is a 69-year-old female with a past medical history significant for hypertension osteoarthritis lymphedema in this patient who did have a chronic nonhealing ulcer to the right posterior thigh presented to hospital with dizziness and fall, infectious disease consulted for right posterior thigh wound and cellulitis. On today's evaluation that is 05/28/2024,the patient denies any fever or any chills, patient is breathing comfortably on room air, the patient denies chest pain shortness of breath and no significant cough, patient denies abdominal pain, no nausea vomiting or diarrhea. Patient denies pain to the right thigh wound area. Patient white count is 5.88, creatinine is 1.1 Objective - Vital Signs Vital signs: Vital Signs Temp 98.0 F 05/28/24 12:42 Pulse 60 05/28/24 12:42 Resp 16 05/28/24 12:42 BP 176/96 05/28/24 12:42 Pulse Ox 98 05/28/24 12:42 FiO2 Intake & Output 05/27/24 05/28/24 05/28/24 18:59 06:59 18:59 Intake Total 100 2520 Output Total 450 800 Balance -379 201 3975 Intake: Intake, IV Titration 100 Amount ceFAZolin 3 gm In Sodium 100 Chloride 0.9% 100 ml @ 200 mls/hr IVPB Q8HR [facility] Rx#:[id number] Oral 2520 Output: Urine 450 800 Other: Voiding Method External Catheter External Catheter # Voids 1 1 4 # Bowel Movements 1 1 - Exam GENERAL DESCRIPTION: An elderly female lying in bed in no distress RESPIRATORY SYSTEM: Unlabored breathing , decreased breath sounds at bases HEART: S1 S2 regular rate and rhythm , ABDOMEN: Soft , no tenderness EXTREMITIES: Right posterior thigh wound is currently dressed - Labs CBC & Chem 7: 05/28/24 04:24 05/28/24 04:24 Labs: Abnormal Lab Results - Last 24 Hours (Table) 05/28/24 05/28/24 Range/Units 04:24 04:24 RBC 3.63 L (4.10-5.20) X 10*6/uL Hgb 9.6 L (12.0-15.0) g/dL Hct 31.5 L (37.2-46.3) % MCH 26.4 L (27.0-32.0) pg MCHC 30.5 L (32.0-37.0) g/dL RDW 15.7 H (11.5-14.5) % Est GFR (CKD-EPI) 54 L (>=60) BUN/Creatinine Ratio 23.73 H (12.00-20.00) Ratio Calcium 8.1 L (8.7-10.3) mg/dL Assessment and Plan (1) Unspecified open wound, right thigh, initial encounter Current Visit: Yes Status: Acute Code(s): S71.101A - UNSPECIFIED OPEN WOUND, RIGHT THIGH, INITIAL ENCOUNTER SNOMED Code(s): 20200039291237806 (2) Cellulitis of right thigh Current Visit: Yes Status: Acute Code(s): L03.115 - CELLULITIS OF RIGHT LOWER LIMB SNOMED Code(s): 44469099001179123 Plan: 1patient with right posterior thigh ulcer and this patient presented to hospital with dizziness and a fall with a chronic ulcer to the right posterior thigh area with minimal cellulitis likely from gram-positive skin robert. 2patient with renal insufficiency high risk for nephrotoxicity from vancomycin 3local wound care with dry Aquacel silver dressing change q. 48-hour 4- patient to continue with the cefazolin with a plan to finish therapy with oral Keflex x 7 days on discharge Dictation was produced using [employer] dictation software. please excuse any grammatical, word or spelling errors. Time with Patient: Less than 30
--- NOTE | 2024-05-29 03:07 | PN ---
PROGRESS NOTE DATE OF SERVICE: 05/28/[address] Dunne. SUBJECTIVE: This 69-year-old woman who was admitted with dizziness due to dehydration, also had some rectal bleeding. No chest pain. No palpitations. No fever. Surgery has also seen the patient for right upper thigh wound. No chest pain, no palpitation. OBJECTIVE: VITAL SIGNS: Pulse is 60, blood pressure 176/96, respirations 16. CHEST: Clear to auscultation. ABDOMEN: Soft. NERVOUS SYSTEM: Nonfocal. LABORATORY DATA: Hemoglobin 9.6. ASSESSMENT: 1. Dizziness and fall, possibly secondary to dehydration. 2. Rectal bleeding. 3. Acute kidney injury. 4. Right lower extremity cellulitis. 5. Multiple complex medical issues. RECOMMENDATIONS AND DISCUSSION: I recommend to continue current management and treatment, otherwise I would recommend to add Norvasc to the current regimen. Continue to monitor. in the morning. MMODL / IJN: [id number] / MTDD
--- NOTE | 2024-05-29 08:40 | P.DS ---
Providers Date of admission: 05/24/24 06:40 Attending physician: Javier Dunne Consults: 05/24/24 08:24 Consult Physician Routine Consulting Provider: Yaa Brannon Consult Reason/Comments: lower extremity wound Do you want consulting provider notified?: Yes 05/27/24 05:29 Consult Physician Urgent Consulting Provider: Hector Cueva Consult Reason/Comments: rectal bleed? bloody bowel movement, hemorrhoid? Do you want consulting provider notified?: Yes Primary care physician: Javier Dunne - Discharge Diagnosis(es) (1) Dizziness Current Visit: Yes Status: Acute (2) Morbid obesity Current Visit: Yes Status: Acute (3) Immobility Current Visit: Yes Status: Acute (4) Cellulitis of left hand Current Visit: No Status: Acute (5) Eye infection Current Visit: Yes Status: Acute Hospital Course: This is a 69-year-old female with a history of morbid obesity and immobility who originally presented to the emergency department with dizziness. However she was found to have a lower extremity wound and was started on IV antibiotics. She was seen and evaluated by infectious disease who is recommending Keflex at discharge. Patient also had some bloody stool during admission, surgeon is recommending outpatient colonoscopy. Patient denies any further episodes of blood in stool. Patient also reports redness to her eyes and some discharge, will be sent home with some drops. She reports the eye issue has been present for the last year. Blood pressure elevated during this admission, norvasc was added and patient will continue at home. Patient may be discharged home today. Patient seen and evaluated by nurse practitioner, physician in agreement with plan Patient Condition at Discharge: Stable Plan - Discharge Summary New Discharge Prescriptions: New Cephalexin [Keflex] 500 mg PO Q6HR 7 Days #28 cap Mag Hydrox/Al Hydrox/Simeth [Maalox] 15 ml PO Q6HR PRN ml PRN Reason: Indigestion bisacodyL [Dulcolax] 5 mg PO DAILY PRN tab PRN Reason: Constipation Nystatin 100,000 Unit/gm Powd [Mycostatin Powder] 1 applic TOPICAL TID each Gentamicin 0.3% Ophth Soln [Garamycin 0.3% Ophth Soln] 1 drops BOTH EYES Q4HR #5 ml amLODIPine [Norvasc] 10 mg PO DAILY 30 Days #30 tab Continue Furosemide [Lasix] 20 mg PO Q7D Metoprolol Tartrate [Lopressor] 50 mg PO DAILY HYDROcodone/APAP 10-325MG [[place] 10-325] 0.5 tab PO Q8H PRN PRN Reason: Pain Pnv,Calcium 72/Iron/Folic Acid [[place] Plus Tablet] 1 tab PO DAILY Discharge Medication List Furosemide [Lasix] 20 mg PO Q7D 05/24/24 [History] HYDROcodone/APAP 10-325MG [[place] 10-325] 0.5 tab PO Q8H PRN 05/24/24 [History] Metoprolol Tartrate [Lopressor] 50 mg PO DAILY 05/24/24 [History] Pnv,Calcium 72/Iron/Folic Acid [[place] Plus Tablet] 1 tab PO DAILY 05/24/24 [History] Cephalexin [Keflex] 500 mg PO Q6HR 7 Days #28 cap 05/26/24 [Rx] Mag Hydrox/Al Hydrox/Simeth [Maalox] 15 ml PO Q6HR PRN ml 05/26/24 [Rx] Nystatin 100,000 Unit/gm Powd [Mycostatin Powder] 1 applic TOPICAL TID each 05/26/24 [Rx] bisacodyL [Dulcolax] 5 mg PO DAILY PRN tab 05/26/24 [Rx] Gentamicin 0.3% Ophth Soln [Garamycin 0.3% Ophth Soln] 1 drops BOTH EYES Q4HR #5 ml 05/29/24 [Rx] amLODIPine [Norvasc] 10 mg PO DAILY 30 Days #30 tab 05/29/24 [Rx] Follow up Appointment(s)/Referral(s): Javier Dunne MD [Primary Care Provider] - [facility], [NON-STAFF] - As Needed Activity/Diet/Wound Care/Special Instructions: Activity limited until follow-up Follow-up with primary care provider on discharge Continue local wound care and home care in the outpatient setting Offloading to the area frequently with position changes every 2 hours [address] the Luis in the area of the right thigh to prevent trauma or injury Continue with wound care by applying Aquacel silver to the right posterior thigh wound every 2 days or if becoming soiled Discharge Disposition: HOME WITH HOME HEALTH SERVICES
[2024-05-29 09:30] LABS: HCT 32.9 % (34.0-46.0); HGB 9.9 gm/dL (11.4-16.0); Hypochromasia Marked; MCH 26.3 pg (25.0-35.0); MCHC 30.1 g/dL (31.0-37.0); MCV 87.5 fL (80.0-100.0); Mean Platelet Volume 7.3; Platelet Count 206 k/uL (150-450); RBC 3.76 m/uL (3.80-5.40); RDW 15.5 % (11.5-15.5); WBC 5.3 k/uL (3.8-10.6)
--- NOTE | 2024-05-29 12:18 | P.PN ---
Subjective Progress Note Date: 05/29/24 Principal diagnosis: Reason for follow-up is right posterior thigh wound and cellulitis Patient is a 69-year-old female with a past medical history significant for hypertension osteoarthritis lymphedema in this patient who did have a chronic nonhealing ulcer to the right posterior thigh presented to hospital with dizziness and fall, infectious disease consulted for right posterior thigh wound and cellulitis. On today's evaluation that is 05/29/2024,the patient remains to be afebrile, patient is on room air not requiring supplemental oxygen and denies any shortnes s of breath no chest pain or cough.Patient denies having any nausea or vomiting, no abdominal pain and no diarrhea has been reported and denies pain to the right posterior thigh wound area. The patient white count is 5.3 creatinine is 1.1 urine culture negative Objective - Vital Signs Vital signs: Vital Signs Temp 98.0 F 05/29/24 08:35 Pulse 79 05/29/24 08:35 Resp 16 05/29/24 08:35 BP 155/89 05/29/24 08:35 Pulse Ox 97 05/29/24 08:35 FiO2 Intake & Output 05/28/24 05/29/24 05/29/24 18:59 06:59 18:59 Intake Total 2520 100 240 Output Total 800 450 Balance 1720 -350 240 Intake: Intake, IV Titration 100 Amount ceFAZolin 3 gm In Sodium 100 Chloride 0.9% 100 ml @ 200 mls/hr IVPB Q8HR [facility] Rx#:[id number] Oral 2520 240 Output: Urine 800 450 Other: Voiding Method External Catheter External Catheter External Catheter # Voids 4 # Bowel Movements 1 - Exam GENERAL DESCRIPTION: An elderly female lying in bed in no distress RESPIRATORY SYSTEM: Unlabored breathing , decreased breath sounds at bases HEART: S1 S2 regular rate and rhythm , ABDOMEN: Soft , no tenderness EXTREMITIES: Right posterior thigh wound is currently dressed - Labs CBC & Chem 7: 05/29/24 09:07 05/28/24 04:24 Labs: Abnormal Lab Results - Last 24 Hours (Table) 05/29/24 Range/Units 09:07 RBC 3.76 L (3.80-5.40) m/uL Hgb 9.9 L (11.4-16.0) gm/dL Hct 32.9 L (34.0-46.0) % MCHC 30.1 L (31.0-37.0) g/dL Assessment and Plan (1) Unspecified open wound, right thigh, initial encounter Current Visit: Yes Status: Acute Code(s): S71.101A - UNSPECIFIED OPEN WOUND, RIGHT THIGH, INITIAL ENCOUNTER SNOMED Code(s): 60927747307339671 (2) Cellulitis of right thigh Current Visit: Yes Status: Acute Code(s): L03.115 - CELLULITIS OF RIGHT LOWER LIMB SNOMED Code(s): 45385804249719376 Plan: 1patient with right posterior thigh ulcer and this patient presented to hospital with dizziness and a fall with a chronic ulcer to the right posterior thigh area with minimal cellulitis likely from gram-positive skin robert. 2patient with renal insufficiency high risk for nephrotoxicity from vancomycin 3local wound care with dry Aquacel silver dressing change q. 48-hour and finishing therapy with a 7-day course of Keflex on discharge Dictation was produced using [employer] dictation software. please excuse any grammatical, word or spelling errors. Time with Patient: Less than 30
--- NOTE | 2024-05-29 13:16 | P.PN ---
Subjective Progress Note Date: 05/29/24 CHIEF COMPLAINT: Right upper thigh wound HISTORY OF PRESENT ILLNESS: Patient with no new complaints. Patient apparently had 1 bloody bowel movement on Wednesday. Since then stools have been brown. She denies any abdominal pain. Denies any nausea or vomiting. Dressing on the right leg has been changed. Afebrile. WBC 5.3 Hgb 9.9 platelets 206. Patient being discharged today PHYSICAL EXAM: VITAL SIGNS: Reviewed. GENERAL: Well-developed in no acute distress. ABDOMEN: Soft. Nondistended. Nontender. NEUROLOGIC: Alert and oriented. Cranial nerves II through XII grossly intact. Extremities right lateral thigh leg wound dressing is intact ASSESSMENT: 1. Right upper thigh leg wound. Possibly pressure ulcer. Patient is obese and has limited mobility. 2. GI bleed PLAN: -No plans for surgical debridement -Continue local wound care per infectious disease recommendations -Antibiotics per ID service -Continue offloading -Recommend outpatient colonoscopy. Hemoglobin remains stable Physician Teacher Physically Impaired note has been reviewed by physician. Signing provider agrees with the documented findings, assessment, and plan of care. Objective - Vital Signs Vital signs: Vital Signs Temp 98.0 F 05/29/24 08:35 Pulse 79 05/29/24 08:35 Resp 16 05/29/24 08:35 BP 155/89 05/29/24 08:35 Pulse Ox 97 05/29/24 08:35 FiO2 Intake & Output 05/28/24 05/29/24 05/29/24 18:59 06:59 18:59 Intake Total 2520 100 240 Output Total 800 450 Balance 1720 -350 240 Intake: Intake, IV Titration 100 Amount ceFAZolin 3 gm In Sodium 100 Chloride 0.9% 100 ml @ 200 mls/hr IVPB Q8HR [facility] Rx#:[id number] Oral 2520 240 Output: Urine 800 450 Other: Voiding Method External Catheter External Catheter External Catheter # Voids 4 # Bowel Movements 1 - Labs CBC & Chem 7: 05/29/24 09:07 05/28/24 04:24 Labs: Abnormal Lab Results - Last 24 Hours (Table) 05/29/24 Range/Units 09:07 RBC 3.76 L (3.80-5.40) m/uL Hgb 9.9 L (11.4-16.0) gm/dL Hct 32.9 L (34.0-46.0) % MCHC 30.1 L (31.0-37.0) g/dL
[2024-05-29 19:33] VITALS: BP 166/81; PULSE 78; RESP 18; TEMP 97.6
== END 2024-05-29 20:25 | disposition home health service (06) ==
LOC: EC 02:09 → 5NMEDONC 06:40
PROVIDERS: ADMIT Family Medicine; ATTEND Family Medicine
DX: R42 Dizziness and giddiness (principal); N17.9 Acute kidney failure, unspecified; E86.0 Dehydration; L03.114 Cellulitis of left upper limb; L03.115 Cellulitis of right lower limb; L97.119 Non-pressure chronic ulcer of right thigh with unspecified severity; E66.01 Morbid (severe) obesity due to excess calories; I89.0 Lymphedema, not elsewhere classified; I10 Essential (primary) hypertension; I87.2 Venous insufficiency (chronic) (peripheral); M19.90 Unspecified osteoarthritis, unspecified site; M62.3 Immobility syndrome (paraplegic); W19.XXXA Unspecified fall, initial encounter; Z68.43 Body mass index [BMI] 50.0-59.9, adult; Z74.01 Bed confinement status; Z79.899 Other long term (current) drug therapy; Z91.040 Latex allergy status; Z86.14 Personal history of Methicillin resistant Staphylococcus aureus infection
CPT/HCPCS: 96376 ×3; 96366 ×7; 96372 ×3; 96375 ×2; 96365; 96367; 99285; 36415; 93005; 80053 ×2; 80048 ×2; 82150; 83690; 84484; 85025 ×4; 85027 ×2; 85610; 86140; 81001; 87086; 84145; 87636; 73552; 73590; 71045; G0378 ×6; J3370; J0690 ×6; J2405; J1650 ×3; J2470 ×4